=== PATIENT | female | born 1995 | race Caucasian/White ===

== ENCOUNTER → 2020-10-05 13:25 | Outpatient (BNVA) | payer BC, SELFPAY | PROVIDERS: Visit Provider Obstetrics & Gynecology | DX: Z32.01 Encounter for pregnancy test, result positive (principal) | CPT/HCPCS: 81025 ==

== ENCOUNTER 2020-10-20 15:34 | Outpatient (CLI) | payer BC, SELFPAY ==
--- NOTE | 2020-10-20 | USR_ITS ---
PROCEDURE INFORMATION: Exam: US , Transvaginal Exam date and time: 10/20/2020 3:55 PM Age: 25 years old Clinical indication: Lmp or gestational age (in weeks): Patient states she should be 8w 1d; Antepartum complications; Bleeding; ; Additional info: Threatened TECHNIQUE: Imaging protocol: Real-time transvaginal obstetrical ultrasound of the maternal pelvis and a first trimester with image documentation. Transvaginal imaging was used for better evaluation of the fetus, adnexa, and/or cervix. COMPARISON: No relevant prior studies available. FINDINGS: Gestation: A single live intrauterine gestation is identified. heart rate: Cardiac activity is documented. However, heart rate is only 61 bpm. Placenta: There is a 1.4 x 0.9 x 0.9 cm focus of subchorionic hemorrhage demonstrated. BIOMETRY: Gestational age (AUA): [place]-rump length correlates to a gestational age of 6 weeks 1 day. MATERNAL: Uterus: Endometrial configuration suggests arcuate uterus. Bicornuate uterus not excluded, but considered less likely based on the submitted axial images. Right adnexa: Right ovary measures 1.9 x 2.4 x 2.5 cm. Multiple follicular cysts are demonstrated. Slightly complex 1.5 cm right ovarian cyst, consistent with a hemorrhagic cyst. Appropriate blood flow documented by Doppler. Left adnexa: Left ovary measures 3.3 x 2.1 x 2.7 cm. Multiple follicular cysts are noted. 1.9 cm exophytic left ovarian cyst versus paraovarian cyst. Appropriate blood flow documented by Doppler. US/US OB transvaginal [id number] IMPRESSION: 1. A single live intrauterine gestation is identified. [place]-rump length correlates to a gestational age of 6 weeks 1 day. 2. Cardiac activity is documented. However, heart rate is only 61 bpm. bradycardia is associated with increased risk for failure. 3. There is a 1.4 x 0.9 x 0.9 cm focus of subchorionic hemorrhage demonstrated. 4. Endometrial configuration suggests arcuate uterus. Bicornuate uterus not excluded, but considered less likely based on the submitted axial images. 5. No significant ovarian abnormality demonstrated. Incidental note made of a 1.5 cm hemorrhagic right ovarian cyst.
== END 2020-10-20 15:35 | disposition home or self-care (01) ==
LOC: RAD 15:40
PROVIDERS: PCP Physician Assistant Medical; Visit Provider Nurse Practitioner Women's Health
DX: O20.0 Threatened abortion (principal); O34.81 Maternal care for other abnormalities of pelvic organs, first trimester; N83.201 Unspecified ovarian cyst, right side; Z3A.01 Less than 8 weeks gestation of pregnancy
CPT/HCPCS: 76817; 84315; 84439; 84443; 84702; 85027; 86850; 86900; 87491; 87591; 87661

== ENCOUNTER → 2020-10-31 09:58 | Outpatient (BNVA) | payer BC, SELFPAY | PROVIDERS: PCP Physician Assistant Medical; Visit Provider Obstetrics & Gynecology | DX: O36.80X0 Pregnancy with inconclusive fetal viability, not applicable or unspecified (principal); O20.0 Threatened abortion; Z3A.00 Weeks of gestation of pregnancy not specified | CPT/HCPCS: 84315; 84702 ==

== ENCOUNTER → 2020-11-07 11:04 | Outpatient (BNVA) | payer BC, SELFPAY | PROVIDERS: PCP Physician Assistant Medical; Visit Provider Obstetrics & Gynecology | DX: O36.80X0 Pregnancy with inconclusive fetal viability, not applicable or unspecified (principal); Z3A.00 Weeks of gestation of pregnancy not specified | CPT/HCPCS: 84315; 84702 ==

== ENCOUNTER → 2020-11-29 13:19 | Outpatient (BNVA) | payer BC, SELFPAY | PROVIDERS: PCP Physician Assistant Medical; Visit Provider Obstetrics & Gynecology | DX: O36.80X0 Pregnancy with inconclusive fetal viability, not applicable or unspecified (principal) | CPT/HCPCS: 84702 ==

== ENCOUNTER → 2021-01-08 00:01 | Outpatient (BNVA) | payer BC, SELFPAY | PROVIDERS: PCP Physician Assistant Medical; Visit Provider Obstetrics & Gynecology | DX: Z12.4 Encounter for screening for malignant neoplasm of cervix (principal); Q51.3 Bicornate uterus | CPT/HCPCS: 88175 ==

== ENCOUNTER 2021-01-22 14:54 | Outpatient (CLI) | payer BC, SELFPAY ==
--- NOTE | 2021-01-22 15:15 | MR_ITS ---
WS: [id number] MRI pelvis, noncontrast. HISTORY: Bicornuate uterus. COMPARISON: 11/21/2020 and 10/20/2020 and ultrasound evaluations. Multiplanar, multisequence imaging is performed through the pelvis to evaluate the uterus. The uterine contour is flat to slightly convex and there is a midline septum. There are 2 endometrial cavities. These endometrial cavities are asymmetric. The endometrial cavity on the LEFT is dominant measuring up to 17 mm with some internal debris. The RIGHT endometrial cavity measures 10 mm. There i s a septum the cavities but this is a short septum. The overall configuration of the fundu s of the uterus is suggestive of a septate uterus and not a bicornuate uterus. The septum between the endometrial cavity terminates proximal to the cervix. There is a small amount of free fluid in the pelvis. Both ovaries are identified and normal size with numerous small cysts. MR/MR pelvis wo con* [id number] IMPRESSION: 1. Findings are most consistent with a partial septate uterus. Differential wo uld include arcuate uterus. 2. Dominant LEFT endometrial cavity contains debris. This may be retained prod ucts of conception. 3. Small amount of free fluid in the cul-de-sac. 4. Numerous bilateral ovarian follicles. Correlate for possible polycystic ova luisito disease.
== END 2021-01-22 14:55 | disposition home or self-care (01) ==
LOC: RADWPI 14:56
PROVIDERS: PCP Physician Assistant Medical; Visit Provider Obstetrics & Gynecology
DX: Q51.3 Bicornate uterus (principal)
CPT/HCPCS: 72195

== ENCOUNTER 2021-04-03 07:54 | Outpatient (CLI) | payer BC, SELFPAY ==
--- NOTE | 2021-04-03 08:00 | FL_ITS ---
WS: [id number] HYSTEROSALPINGOGRAM The cervical opening was cannulated by the river rat. Then under fluoroscopic guidance, water-solu ble contrast was injected in a retrograde fashion. FLUOROSCOPY TIME: CLINICAL INFORMATION: Q51.3 - Bicornate uterus COMPARISON: None. FINDINGS: Septated uterus with normal filling. No filling defects. The bilateral fallopian tubes are normal and patent with normal rapid spillage of contrast into the peritoneum. FLUOROSCOPY TIME: minutes. FL/FL hysterosalpingography [id number] IMPRESSION: Septated uterus with normal filling. Fallopian tubes are patent with normal spi llage.
--- NOTE | 2021-04-03 08:45 | PM.ACPR ---
Procedure/Consent Procedure Narrative: Radiologic procedure Date of procedure: 04/03/2021 Date of dictation: 04/03/2021 Procedural diagnosis: Assess uterine cavity-possible septum Procedure done: Placement of hysterosalpingogram catheter Physician: Dr. Yenny Finley Anesthesia: None Indication: To assess depth and width of uterine septum Complications: None, patient tolerated the procedure well PROCEDURE: The procedure was explained to the patient and verbal consent provided. Sterile speculum was placed in the vagina and the cervix was prepped with Betadine. The cervix was grasped with a single-tooth tenaculum. Using Omnipaque dye, the HSG catheter was primed. The catheter was inserted into the cervix and the speculum was removed. Fluoroscopy was performed by the radiologist. Omnipaque dye was injected into the endometrial cavity with filling of cavity with a large central filling defect consistent with septum--see final report of radiologist. Bilateral tubes appeared normal caliber with immediate spill of dye bilaterally. The tenaculum and catheter were removed. Patient tolerated the procedure well. Please see separate radiologist report for final interpretation. Followup appointment: She is to followup at her next scheduled appointment
[2021-04-03] MEDS: iohexol 300 mg/mL 50 mL Btl VAGINAL (08:48)
== END 2021-04-03 07:55 | disposition home or self-care (01) ==
LOC: RAD 07:58
PROVIDERS: PCP Physician Assistant Medical; Visit Provider Obstetrics & Gynecology
DX: Q51.3 Bicornate uterus (principal); Q51.28 Other and unspecified doubling of uterus
CPT/HCPCS: 74740

== ENCOUNTER → 2021-10-31 09:39 | Outpatient (BNVA) | payer BC, SELFPAY | PROVIDERS: PCP Physician Assistant Medical; Visit Provider Nurse Practitioner Women's Health | DX: N92.6 Irregular menstruation, unspecified (principal) | CPT/HCPCS: 81025 ==

== ENCOUNTER 2021-11-05 11:26 | Emergency (ER) | payer BC, SELFPAY ==
--- NOTE | 2021-11-05 11:35 | US_ITS ---
WS: [id number] ULTRASOUND EARLY TECHNIQUE: Transabdominal sonography of the pelvis was performed. Followed by transvaginal sonography to better evaluate the uterus and ovaries. CLINICAL INFORMATION: 8 wks preg; bleeding LMP: 09/21/2021 Beta hCG: Unknown. COMPARISON: October 31, 2021 FINDINGS: UTERUS AND GESTATIONAL SAC Intrauterine gestations: Cervix measures 3.0 cm Intrauterine gestation with gestational sac and pole. Visualized cardiac activity. Estimated gestational age: 6w1d Yolk sac: 0.3 cm. [place] rump length (CRL): 0.4 cm. heart motion: 94 BPM. Subchorionic hemorrhage: None. OVARIES Similar left paraovarian cyst Right ovary: Normal. Left ovary: Normal. FREE FLUID Present US/US OB transvaginal [id number] IMPRESSION: 1. Single live intrauterine . Cervix measures 3.0 cm 2. Estimated gestational age; 6w1d 3. Estimated delivery June 30, 2022 4. Stable simple left paraovarian cyst. 5. Small amount of free fluid in the cul-de-sac.
[2021-11-05 13:01] VITALS: BP 132/80; PULSE 90; RESP 18; TEMP 36.7; O2SAT 99; BMI 40.3
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
[2021-11-05 14:16] LABS: Basophils # 0.1 10^3/uL (0.0-0.1); Basophils % 0.7 %; Eosinophils # 0.1 10^3/uL (0.0-0.8); Eosinophils % 1.7 %; Hematocrit 41.4 % (37.0-47.0); Hemoglobin 13.6 g/dL (11.5-15.3); Lymphocytes # 2.2 10^3/uL (0.8-4.8); Lymphocytes % 30.5 %; Mean Corpuscular HGB Conc 32.9 g/dL (30.0-36.0); Mean Corpuscular Volume 85.4 fl (81-99); Mean Platelet Volume 9.6 fL (7.4-10.4); Monocytes # 0.4 10^3/uL (0.2-0.9); Neutrophils # 4.29 10^3/uL (1.8-7.7); Neutrophils % 60.8 %; Nucleated Red Blood Cells % 0 %; Platelet Count 328 10^3/cmm (130-400); Red Blood Count 4.85 10^6/uL (4.1-5.3); Red Cell Distribution Width 13.9 % (12.1-15.1); White Blood Count 7.1 10^3/uL (4.0-10.0)
[2021-11-05 14:41] LABS: Alanine Aminotransferase 28 U/L (0-33); Albumin Level 4.7 g/dL (3.5-5.2); Alkaline Phosphatase 48 IU/L (35-105); Anion Gap 18.9 (5-19); Aspartate Amino Transferase 19 U/L (0-32); Blood Urea Nitrogen 9 mg/dL (6-20); Carbon Dioxide 22 mmol/L (22-29); Chloride 102 mmol/L (98-107); Globulin 2.8 g/dL (1.3-4.6); Glomerular Filtration Rate 149.1 mL/min (90-130); Glucose 87 mg/dL (65-115); Osmolality Calculated 286 mOsm/kg (285-295); Potassium 3.9 mmol/L (3.5-5.1); Sodium 139 mmol/L (136-145); Total Bilirubin 0.7 mg/dL (0.15-1.2); Total Protein 7.5 g/dL (6.6-8.7)
[2021-11-05 15:31] VITALS: BP 132/80; PULSE 90; RESP 18; TEMP 36.7; O2SAT 99
--- NOTE | 2021-11-06 16:17 | PC.SOCIAL ---
Verified with patient that she did get the outpatient request form for the hcg serum quant on 11/07/21. She verified she does have the outpatient request order and plans on taking it to [facility] and having test done there.
== END 2021-11-05 15:32 | disposition home or self-care (01) ==
PROVIDERS: Emergency Provider Physician Assistant; PCP Physician Assistant Medical
DX: O20.0 Threatened abortion (principal); Z3A.01 Less than 8 weeks gestation of pregnancy
CPT/HCPCS: 36415; 76817; 80053; 84702; 85025; 86900; 99283

== ENCOUNTER → 2021-11-07 13:10 | Outpatient (BNVA) | payer BC, SELFPAY | PROVIDERS: PCP Physician Assistant Medical; Visit Provider Physician Assistant | DX: Z34.90 Encounter for supervision of normal pregnancy, unspecified, unspecified trimester (principal) | CPT/HCPCS: 84702 ==

== ENCOUNTER → 2021-11-13 12:06 | Outpatient (BNVA) | payer BC, SELFPAY | PROVIDERS: PCP Physician Assistant Medical; Visit Provider Nurse Practitioner Family | DX: O20.0 Threatened abortion (principal) | CPT/HCPCS: 84702 ==

== ENCOUNTER → 2021-12-04 11:23 | Outpatient (BNVA) | payer BC, SELFPAY | PROVIDERS: PCP Physician Assistant Medical; Visit Provider Obstetrics & Gynecology | DX: F32.A Depression, unspecified (principal); O20.0 Threatened abortion | CPT/HCPCS: 84702 ==

== ENCOUNTER 2022-04-16 07:40 | Outpatient (CLI) | payer OTHER, SELFPAY ==
--- NOTE | 2022-04-16 08:00 | FL_ITS ---
WS: [id number] Hysterosalpingogram, 04/16/2022 Clinical Data: Z98.891 - History of uterine scar from previous surgery Comparison: None. Fluoroscopy time: 0min [id number] # of spot films: 4 Findings: Dr. Betts injected contrast material into the uterus. The fallopian tubes were normal and fi lled. There is spill in the pelvis bilaterally. Both fallopian tubes were open without dilatation. Th e uterus had a bicornuate configuration. FL/FL hysterosalpingography [id number] Impression: Bicornuate figuration of the uterus with normal bilateral fallopian tubes and p elvic spill.
--- NOTE | 2022-04-16 08:30 | PM.ACPR ---
Procedure/Consent Procedure Narrative: Radiologic procedure Date of procedure: 04/16/2022 Procedural diagnosis: Assess uterine septum Procedure done: Placement of hysterosalpingogram catheter Physician: Dr. Yenny Finley Anesthesia: None Indication: To assess patency of fallopian tubes as well as to reassess septum after surgery Complications: None, patient tolerated the procedure well PROCEDURE: The procedure was explained to the patient and verbal consent provided. Sterile speculum was placed in the vagina and the cervix was prepped with Betadine. The cervix was grasped with a single-tooth tenaculum. Using Omnipaque dye, the HSG catheter was primed. The catheter was inserted into the cervix and the speculum was removed. Fluoroscopy was performed by the radiologist. Omnipaque dye was injected into the endometrial cavity with normal filling of the cavity. Defect from uterine septum was still seen. Bilateral tubes appeared normal caliber with immediate spill of dye bilaterally. The tenaculum and catheter were removed. Patient tolerated the procedure well. Please see separate radiologist report for final interpretation. Followup appointment: She is to followup at her next scheduled appointment
[2022-04-16] MEDS: iohexol 240 mg/mL 50 mL Btl INTRA-ARTI (08:39)
== END 2022-04-16 07:41 | disposition home or self-care (01) ==
PROVIDERS: PCP Physician Assistant Medical; Visit Provider Obstetrics & Gynecology
DX: Z98.891 History of uterine scar from previous surgery (principal)
CPT/HCPCS: 74740

== ENCOUNTER 2023-03-14 06:58 | Outpatient (CLI) | payer OTHER, SELFPAY ==
--- NOTE | 2023-03-14 07:20 | MR_ITS ---
WS: [id number] MRI PELVIS with and without CONTRAST. COMPARISON: Prior MRI pelvis 01/22/2021. Multiplanar, multisequence imaging is performed with and without contrast. MultiHance 20 mL IV. Normal size and position of the uterus. Improvement in the previously described septate uterus. There was a very minimal partial septation which is no longer identified. There is a normal contour of the uterus. There is a more typical appearance of the endometrium with normal cornua. No thickening or w idening of the endometrium. There is a new area of T2 bright nodularity along the lower uterine segme nt which does not enhance. This may be scar tissue or adenomyosis. This area measures 10 x 12 mm and was not present on the prior study. Subendometrial cyst within the differential. No adnexal masses or adenopathy. Physiologic amount of free fluid. No endometrial implants are identi fied. Ovaries are normal size with a few small follicles. Visualized bladder is normal. MR/MR pelvis wo/w con [id number] IMPRESSION: 1. Previously described partial septate is no longer present compared to the p rior study from 2020. As per history surgical removal of the partial septate. N o endometrial mass. 2. New, nonenhancing T2 bright nodularity along the lower uterine segment caridad ures 10 x 12 mm. Differential includes small subendometrial cysts. Not a typica l appearance of scar tissue or endometriosis. 3. Normal appearance of the endometrium. 4. Normal ovaries.
== END 2023-03-14 06:59 | disposition home or self-care (01) ==
PROVIDERS: PCP Nurse Practitioner Family; Visit Provider Obstetrics & Gynecology Reproductive Endocrinology
DX: Q51.9 Congenital malformation of uterus and cervix, unspecified (principal)
CPT/HCPCS: 72197; A9577

== ENCOUNTER 2023-07-03 07:12 | Outpatient (CLI) | payer OTHER, SELFPAY ==
--- NOTE | 2023-07-03 07:23 | US_ITS ---
WS: [id number] US pelv w/transvag [id number] HISTORY: ENCOUNTER FOR OTHER PROCREATIVE MANAGEMENT COMPARISON: None available. Uterus: 7.9 cm x 5.3 cm x 4.2 cm. Normal size retroverted uterus on transvaginal imaging. No fibroid or mass. Endometrium: 1.0 cm. Tiny amount of fluid along the endometrial canal Right ovary: 2.7 cm x 1.7 cm x 3.0 cm. Normal size ovary. There are multiple small follicles. The lar gest follicle measures 6 mm. Approximately 14 follicles are identified. Left ovary: 4.4 cm x 4.6 cm x 3.4 cm. Mildly enlarged ovary due to a large cyst with daughter cyst cy st measures 3.0 x 3.9 x 3.1 cm. There are additional small follicles within the periphery of the ovar y which are being displaced by the larger cyst. Number of follicles is approximately 12. Largest foll icle measures 7 mm. No free fluid in the cul-de-sac. IMPRESSION: 1. Large left ovarian cyst/daughter cyst. Cyst measures 3.0 x 3.9 x 3.1 cm. 2. Right ovarian follicle count = 14. 3. Left ovarian follicle count = 12. 4. Normal endometrium, 1.0 cm.
== END 2023-07-03 07:13 | disposition home or self-care (01) ==
PROVIDERS: PCP Nurse Practitioner Family; Visit Provider Obstetrics & Gynecology Reproductive Endocrinology
DX: Z31.89 Encounter for other procreative management (principal); N83.202 Unspecified ovarian cyst, left side
CPT/HCPCS: 76830; 76856

== ENCOUNTER 2023-07-14 06:46 | Outpatient (CLI) | payer OTHER, SELFPAY ==
--- NOTE | 2023-07-14 | US_ITS ---
WS: [id number] US transvaginal [id number] HISTORY: FERTILITY STUDY COMPARISON: 07/03/2023 Uterus: 7.4 cm x 6.1 cm x 3.8 cm. Normal size anteverted uterus. No fibroid or mass. Endometrium: 1.2 cm. Mildly thickened endometrium. Mild progression since the prior examination from 07/03/2023. Right ovary: 2.9 cm x 2.4 cm x 3.0 cm. Normal size ovary with several subcentimeter follicles. Larges t follicle measures 9 mm. The number of follicles is estimated at 10. Left ovary: 3.9 cm x 3.9 cm x 2.6 cm. Mildly enlarged ovary. Dominant daughter cyst is noted. Cyst me asures 3.2 x 2.8 x 3.3 cm. There are a few additional small peripheral follicles. An additional folli aguilar with a maximum diameter of 1.5 cm. No free fluid in the cul-de-sac. IMPRESSION: 1. Normal endometrium at 1.2 cm. 2. LEFT ovarian cyst measures 3.2 x 2.8 x 3.3 cm. 3. Approximately 10 subcentimeter follicles RIGHT ovary.
== END 2023-07-14 06:47 | disposition home or self-care (01) ==
PROVIDERS: PCP Nurse Practitioner Family; Visit Provider Obstetrics & Gynecology Reproductive Endocrinology
DX: Z31.9 Encounter for procreative management, unspecified (principal); N83.202 Unspecified ovarian cyst, left side
CPT/HCPCS: 76830

== ENCOUNTER 2023-07-17 06:07 | Outpatient (CLI) | payer OTHER, SELFPAY ==
--- NOTE | 2023-07-17 | US_ITS ---
WS: [id number] US transvaginal [id number] HISTORY: Endometrial Thickening and Follicular measurement COMPARISON: 07/14/2023 Uterus: 6.6 cm x 4.8 cm x 3.4 cm. Uterus is retroverted on today's exam. No fibroid. Endometrium: 1.1 cm. Mildly thickened endometrium. Similar to the prior study. Right ovary: 2.7 cm x 1.8 cm x 2.2 cm. Normal size ovary. There are multiple small follicles with the largest diameter at 0.7 cm. Left ovary: 4.8 cm x 4.2 cm x 2.6 cm. Ovary is enlarged. Again noted is a daughter cyst within the ov lee measuring 4.1 x 3.7 x 2.3 cm. There is an additional enlarging follicle of 1.7 x 1.9 x 1.6 cm. Se veral of the follicles within the LEFT ovary have increased in size since the prior study. Number of follicles estimated at approximately 10. No free fluid in the cul-de-sac. IMPRESSION: 1. Mildly thickened endometrium at 1.1 cm. Similar to the prior exam of 07/14/2023. 2. Enlarging cyst and follicles within the LEFT ovary. The largest cyst 4.1 x 3.7 x 2.3 cm has increa sed in size since 02/11/2023. There are additional follicles which have increased in size. 3. Subcentimeter follicles in the RIGHT ovary unchanged.
== END 2023-07-17 06:08 | disposition home or self-care (01) ==
PROVIDERS: PCP Nurse Practitioner Family; Visit Provider Obstetrics & Gynecology Reproductive Endocrinology
DX: Z31.9 Encounter for procreative management, unspecified (principal); R93.89 Abnormal findings on diagnostic imaging of other specified body structures
CPT/HCPCS: 76830

== ENCOUNTER 2023-08-01 12:56 | Outpatient (CLI) | payer OTHER, SELFPAY ==
--- NOTE | 2023-08-01 | US_ITS ---
WS: [id number] US transvaginal [id number] HISTORY: ENDO THICKNESS, NUMBER OF FOLLICLES <1CM, MEASURE >1CM COMPARISON: 07/17/2023 Uterus: 7.2 cm x 4.9 cm x 3.6 cm. Normal size retroverted uterus. No fibroid or mass identified. Endometrium: 0.85 cm. Normal. No increased vascularity. Secretory phase endometrium. Loss of the norm al trilaminar appearance. Right ovary: 3.1 cm x 1.8 cm x 3.1 cm. Largest follicle 1.5 x 1.1 x 1.2 cm. The remaining follicles a re less than a centimeter. The remaining follicles are peripherally distributed within the ovary Left ovary: 7.2 cm x 5.3 cm x 3.2 cm. Large cyst measures 4.7 x 3.9 x 2.7 cm. Additional follicles wi thin the ovary. There are 2 additional follicles each measuring greater than 1 cm. Largest measures 1 .7 x 1.7 x 1.8 cm. Additional follicle measuring greater than a centimeter measures 0.9 x 1.2 x 0.5 c m. Several additional follicles measuring less than a centimeter in the periphery. Small amount of free fluid. IMPRESSION: 1. LEFT ovarian cyst 4.7 x 3.9 x 2.7 cm. 2. There are 2 additional LEFT ovarian follicles each measuring greater than a centimeter. 3. Single RIGHT ovarian follicle greater than 1 cm, 1.5 x 1.1 x 1.2 cm. 4. Secretory endometrium.
== END 2023-08-01 12:57 | disposition home or self-care (01) ==
LOC: RAD 12:58
PROVIDERS: PCP Nurse Practitioner Family; Visit Provider Obstetrics & Gynecology Reproductive Endocrinology
DX: R93.89 Abnormal findings on diagnostic imaging of other specified body structures (principal); N83.202 Unspecified ovarian cyst, left side
CPT/HCPCS: 76830

== ENCOUNTER 2023-09-03 06:51 | Outpatient (CLI) | payer OTHER, SELFPAY ==
--- NOTE | 2023-09-03 | US_ITS ---
WS: [email or web address] US transvaginal [id number] HISTORY: FOLLICLE COUNT AND THICKNESS COMPARISON: 08/01/2023 Uterus: 6.6 cm x 5.3 cm x 3.6 cm. Normal size retroverted uterus. No fibroid or mass identified. Endometrium: 1.0 cm. Mildly thickened heterogeneous endometrium. Loss of the normal trilaminar endome trium. Right ovary: 2.9 cm x 1.8 cm x 3.1 cm. Normal size ovary. There are several small peripheral follicle s. The number of follicles is estimated at 6. The largest follicle measures 9 x 6.8 mm. Left ovary: 3.0 cm x 2.6 cm x 1.6 cm. Normal size ovary. The largest cyst within the LEFT adnexa is a djacent but not definitely within the ovary. Favor this is probably an exophytic cyst. This was not p resent on the prior study. This adnexal cyst measures 18 x 18 x 13 mm. The follicles within the LEFT ovary otherwise are smaller. Approximately 6 follicles are estimated. No free fluid in the cul-de-sac. IMPRESSION: 1. Heterogeneous endometrium at 1.0 cm. 2. RIGHT ovarian follicles, number estimated at 6. Largest follicle 9 x 6 x 8 mm. 3. Estimated 6 follicles within the LEFT ovary. The largest cyst in the LEFT adnexa is adjacent to th e ovary. This is probably an exophytic ovarian cyst. This is the largest in the LEFT adnexa measuring 18 x 18 x 13 mm.
== END 2023-09-03 06:52 | disposition home or self-care (01) ==
LOC: RAD 06:52
PROVIDERS: PCP Nurse Practitioner Family; Visit Provider Obstetrics & Gynecology Reproductive Endocrinology
DX: Z31.9 Encounter for procreative management, unspecified (principal)
CPT/HCPCS: 76830

== ENCOUNTER 2023-09-15 06:04 | Outpatient (CLI) | payer OTHER, SELFPAY ==
--- NOTE | 2023-09-15 06:26 | US_ITS ---
WS: [email or web address] US pelvis lmt w transvag HISTORY: Follicle size. COMPARISON: 09/03/2023 Normal sized midline uterus. Uterus is anteverted today. No fibroid or mass. Endometrium: 1.3 cm. Normal, homogeneous and symmetric appearance of the endometrium. Consistent with a secretory phase of the menstrual cycle. Right ovary: 4.4 cm x 4.3 cm x 3.0 cm. Multiple small follicles are identified. The largest follicle measures 0.8 x 0.8 cm. Number of follicles estimated at 9. Left ovary: 3.9 cm x 4.6 cm x 2.2 cm. Multiple follicles are identified in the LEFT ovary. Largest fo llicle measures 1.4 x 1.8 cm. There are additional smaller follicles. The number of follicles estimat ed at 8. Small amount of free fluid in the cul-de-sac. IMPRESSION: 1. LEFT ovary: Largest follicle 1.4 x 1.8 cm. 2. RIGHT ovary: Follicles are less than 1 cm. 3. Number of follicles LEFT ovary estimated at 8. 4. Number of follicles RIGHT ovary estimated at 9. 5. Secretory endometrium.
== END 2023-09-15 06:05 | disposition home or self-care (01) ==
LOC: RAD 06:05
PROVIDERS: PCP Nurse Practitioner Family; Visit Provider Obstetrics & Gynecology Reproductive Endocrinology
DX: Z31.9 Encounter for procreative management, unspecified (principal)
CPT/HCPCS: 76830; 76857

== ENCOUNTER 2023-10-03 07:37 | Outpatient (CLI) | payer OTHER, SELFPAY ==
--- NOTE | 2023-10-03 07:44 | USR_ITS ---
PROCEDURE INFORMATION: Exam: US Pelvis, Transvaginal Exam date and time: 10/03/2023 8:26 AM Age: 28 years old Clinical indication: Screening exam; Procreative management. No history of trauma or recent surgery is provided. TECHNIQUE: Imaging protocol: Real-time transvaginal pelvic ultrasound with image documentation. Transvaginal imaging was used for better evaluation of the endometrium, adnexa, and/or cervix. 269image(s) are provided. COMPARISON: 1. US pelvis lmt w transvag 09/15/2023 6:36 AM 2. US transvaginal [id number] 09/03/2023 7:13 AM 3. US transvaginal [id number] 08/01/2023 1:57 PM FINDINGS: Uterus: The uterus measures 6.8 x 2.9 x 4.8 cm. The endometrial measures 1 cm. No uterine endometrial fluid collections are currently appreciated. The uterine echotexture is relatively homogeneous. Cervix: There are some cervical nabothian cystic changes present. No cervix level fluid collections are currently appreciated. Right ovary/adnexa: The right ovary measures 2.9 x 2.8 x 2 cm. Ovarian color doppler flow is demonstrated. There are multiple right ovarian anechoic follicular cystic type related changes with 1 of the larger measuring around 1.3 x 1 cm. There appear to be estimated around 6 larger dominant appearing cysts overall present with minimal smaller adjacent. Left ovary/adnexa: The left ovary measures 3.5 x 1.6 x 2.5 cm. Ovarian color doppler flow is demonstrated. The left ovary demonstrates multiple anechoic follicular cystic related changes present with 1 of the larger measuring 1.5 x 1.7 x 1.7 cm. There appear to be estimated at least 5 left ovarian dominant cystic related changes with some minimal smaller adjacent. Intraperitoneal space: No significant free fluid is appreciated. There is some trace pelvic, cul-de-sac fluid likely physiologic. No other significant interval changes are appreciated. US/US transvaginal [id number] IMPRESSION: 1. There are multiple ovarian follicular anechoic cystic changes demonstrated bilaterally. 2. Ovarian color Doppler flow is demonstrated bilaterally. 3. No interval central uterine canal fluid collections are appreciated.
== END 2023-10-03 07:38 | disposition home or self-care (01) ==
LOC: RAD 07:38
PROVIDERS: PCP Nurse Practitioner Family; Visit Provider Obstetrics & Gynecology Reproductive Endocrinology
DX: Z31.9 Encounter for procreative management, unspecified (principal)
CPT/HCPCS: 76830

== ENCOUNTER 2023-10-13 15:13 | Outpatient (CLI) | payer OTHER, SELFPAY ==
--- NOTE | 2023-10-13 16:00 | US_ITS ---
WS: [email or web address] US transvaginal [id number] HISTORY: Mid cycle scan COMPARISON: 10/03/2023 Uterus: 7.0 cm x 4.8 cm x 3.2 cm. Normal size retroverted uterus. No fibroid or mass identified. Endometrium: 0.8 cm. Mild secretory appearance of the endometrium. Right ovary: 2.8 cm x 2.4 cm x 1.8 cm. Normal size ovary with multiple small follicles. The largest f ollicle measures 0.7 x 0.8 x 1.2 cm. Estimated number of follicles is 5. Left ovary: 3.6 cm x 2.9 cm x 2.3 cm. Large follicle measures 2.4 x 1.3 x 2.8 cm. The number of folli cles estimated at 6. No free fluid in the cul-de-sac. IMPRESSION: 1. Secretory appearance of the endometrium. 2. Largest follicle LEFT ovary 2.4 x 1.3 x 2.8 cm. 3. Number of follicles LEFT ovary estimated at 6. 4. Number of follicles RIGHT ovary estimated at 5.
== END 2023-10-13 15:14 | disposition home or self-care (01) ==
PROVIDERS: PCP Nurse Practitioner Family; Visit Provider Obstetrics & Gynecology Reproductive Endocrinology
DX: Z31.9 Encounter for procreative management, unspecified (principal)
CPT/HCPCS: 76830

== ENCOUNTER 2023-12-12 10:21 | Outpatient (CLI) | payer OTHER, SELFPAY ==
--- NOTE | 2023-12-12 10:28 | US_ITS ---
WS: [email or web address] US transvaginal [id number] HISTORY: ENCOUNTER FOR OTHER PROCREATIVE MANAGEMENT COMPARISON: 10/13/2023 Uterus: 6.7 cm x 5.1 cm x 3.1 cm. Normal size retroverted uterus. No fibroid or mass identified. Endometrium: 1.4 cm. Mild thickening of the endometrium with loss of the normal junctional zone. Right ovary: 3.2 cm x 1.8 cm x 2.9 cm. Normal size ovary. The largest follicle measures 1.2 x 1.2 x 0 .8 cm. There are greater than 10 follicles within the ovary. Left ovary: 3.0 cm x 3.3 cm x 1.9 cm. Normal size ovary. Dominant follicle measures 1.3 x 1.4 x 1.7 c m. Greater than 10 follicles are identified within the ovary. No free fluid in the cul-de-sac. IMPRESSION: 1. Mild thickening of the endometrium to 1.4 cm. 2. Greater than 10 follicles are identified within each ovary. The exact number is difficult to dete rmine due to their very small size. 3. Largest follicle RIGHT ovary -1.2 x 1.2 x 0.8 cm. 4. Largest follicle LEFT ovary -1.3 x 1.4 x 1.7 cm.
== END 2023-12-12 10:22 | disposition home or self-care (01) ==
LOC: RAD 10:21
PROVIDERS: PCP Nurse Practitioner Family
DX: Z31.89 Encounter for other procreative management (principal); R93.89 Abnormal findings on diagnostic imaging of other specified body structures
CPT/HCPCS: 76830

== ENCOUNTER 2023-12-22 10:04 | Outpatient (CLI) | payer OTHER, SELFPAY ==
--- NOTE | 2023-12-22 10:12 | US_ITS ---
WS: [id number] US transvaginal [id number] HISTORY: ENCOUNTER FOR OTHER PROCREATIVE MANAGEMENT COMPARISON: 12/12/2023 Uterus: 6.1 cm x 4.5 cm x 3.2 cm. Normal size retroverted uterus. No fibroid or mass identified. Endometrium: 1.5 cm. Thickened heterogeneous endometrium. Endometrium has increased in thickness sinc e 12/12/2023. More focal thickening of the endometrium at the fundal portion. Right ovary: 3.9 cm x 3.3 cm x 3.7 cm. Ovary is slightly greater in size than on the prior study. Cum ulus oophorus within the RIGHT ovary measures 2.8 x 2.3 x 2.2 cm. There are numerous additional perip heral follicles within the RIGHT ovary. Number of follicles is greater than 10. Left ovary: 3.3 cm x 2.7 cm x 1.8 cm. Numerous small follicles have increased in size and number sinc e the prior examination. The largest follicle is 1.4 x 1.5 x 1.2 cm. There are at least 16 follicles identified. No free fluid in the cul-de-sac. IMPRESSION: 1. Secretory endometrium; 1.5 cm. 2. RIGHT ovary: Large dominant follicle measures 2.8 x 2.3 x 2.2 cm. There are at least 10 follicles identified in the RIGHT ovary. 3. LEFT ovary: Largest follicle measures 1.4 x 1.5 x 1.2 cm. At least 16 follicles identified.
== END 2023-12-22 10:05 | disposition home or self-care (01) ==
LOC: RAD 10:04
PROVIDERS: PCP Nurse Practitioner Family; Visit Provider Obstetrics & Gynecology Reproductive Endocrinology
DX: Z31.89 Encounter for other procreative management (principal)
CPT/HCPCS: 76830

== ENCOUNTER 2024-01-05 14:47 | Outpatient (CLI) | payer OTHER, SELFPAY ==
--- NOTE | 2024-01-05 14:51 | US_ITS ---
WS: [email or web address] ULTRASOUND BREAST LEFT TECHNIQUE: Ultrasound left breast focused area of concern. CLINICAL INFORMATION: ABCESS OF BR AND NIPPLE COMPARISON: None. FINDINGS: Ultrasound LEFT breast area of concern 7 o'clock position 5 cm from the nipple. Tiny subcutaneous les ion adjacent to the skin measuring 8 x 1 mm. This likely resents a tiny sebaceous cyst. No other susp icious findings. This has a benign appearance.. IMPRESSION: BI-RADS 2 benign Recommend annual screen mammography age 40.
== END 2024-01-05 14:48 | disposition home or self-care (01) ==
LOC: RAD 14:47
PROVIDERS: PCP Nurse Practitioner Family; Visit Provider Nurse Practitioner Family
DX: N61.1 Abscess of the breast and nipple (principal)
CPT/HCPCS: 76642

== ENCOUNTER 2024-01-16 07:46 | Outpatient (CLI) | payer OTHER, SELFPAY ==
--- NOTE | 2024-01-16 07:52 | US_ITS ---
WS: [email or web address] US transvaginal [id number] HISTORY: ENCOUNTER FOR OTHER PROCREATIVE MANAGEMENT COMPARISON: 12/22/2023 Uterus: 6.4 cm x 5.1 cm x 3.3 cm. Normal size retroverted uterus. No fibroid or mass identified. Endometrium: 0.5 cm. Normal. Right ovary: 3.6 cm x 2.4 cm x 3.6 cm. Normal size ovary. Numerous follicles identified. The largest measures 1.4 x 1.3 x 1.8 cm. The remaining follicles are less than a centimeter. Number of follicles estimated at approximately 10. Left ovary: 2.9 cm x 2.9 cm x 1.7 cm. Normal size ovary. Largest follicle measures 1.5 x 1.7 x 1.1 cm . The remaining follicles are less than a centimeter. Number of follicles estimated around 12. No free fluid in the cul-de-sac. IMPRESSION: 1. RIGHT ovary; dominant follicle 1.4 x 1.3 x 1.8 cm. 2. LEFT ovary; dominant follicle 1.5 x 1.7 x 1.1 cm. 3. RIGHT ovarian follicles estimated at 10. 4. LEFT ovarian follicles estimated at 12.
== END 2024-01-16 07:47 | disposition home or self-care (01) ==
LOC: RAD 07:47
PROVIDERS: PCP Nurse Practitioner Family; Visit Provider Obstetrics & Gynecology Reproductive Endocrinology
DX: Z31.89 Encounter for other procreative management (principal)
CPT/HCPCS: 76830

== ENCOUNTER 2024-01-26 07:48 | Outpatient (CLI) | payer OTHER, SELFPAY ==
--- NOTE | 2024-01-26 07:59 | US_ITS ---
WS: [email or web address] US pelvic limited [id number] HISTORY: MIDCYCLE SCAN/PROCREATIVE MANAGEMENT COMPARISON: 01/16/2024 Uterus: 6.7 cm x 5.3 cm x 3.5 cm. Normal size retroverted uterus. No fibroid or mass identified. Endometrium: 1.5 cm. Progressive thickening of the endometrium since the prior study. Endometrium is thickened with increased echogenicity and central lucency. Consistent with secretory phase of the men strual cycle. Right ovary: 4.4 cm x 4.2 cm x 3.1 cm. Mildly enlarged ovary. Multiple follicles are evident. Collaps ing corpus luteum measures 1.2 x 1.8 x 1.5 cm. There is additional dominant follicle which is intact measuring 1.6 x 2.0 x 1.9 cm. Number of follicles estimated at 8. Left ovary: 2.5 cm x 2.9 cm x 1.5 cm. Multiple small follicles are identified. The largest measures 1 .3 x 0.7 x 1.5 cm. Number of follicles estimated at 6. No free fluid in the cul-de-sac. IMPRESSION: 1. Secretory endometrium; 1.5 cm. 2. RIGHT ovarian regressing corpus luteal cyst 1.2 x 1.8 x 1.5 cm. 3. Dominant RIGHT follicle which is not regressing/collapsing measures 1.6 x 2.0 x 1.9 cm. 4. Small follicles LEFT ovary with the largest measuring 1.3 x 0.7 x 1.5 cm. 5. RIGHT ovary estimated number of follicles: 8. 6. LEFT ovary estimated number of follicles: 6.
== END 2024-01-26 07:49 | disposition home or self-care (01) ==
LOC: RAD 07:49
PROVIDERS: PCP Nurse Practitioner Family; Visit Provider Obstetrics & Gynecology Reproductive Endocrinology
DX: Z31.89 Encounter for other procreative management (principal); N83.11 Corpus luteum cyst of right ovary
CPT/HCPCS: 76857

== ENCOUNTER 2025-02-17 15:10 | Inpatient (IN) | payer OTHER, SELFPAY ==
[2025-02-17] VITALS (33 sets, daily range): BP systolic 104–163; BP diastolic 40–95; PULSE 61–100; RESP 16–17; TEMP 36.6–36.8; O2SAT 98–100; BMI 51.5
[2025-02-17 15:11] LABS: Nitrazine Paper, PH Positive
--- NOTE | 2025-02-17 16:24 | PC.NURSE ---
Patient wearing inappropriate blood pressure cuff at this time; cuff too small. Changed to radial cuff.
[2025-02-17 16:45] LABS: Basophils % 0.2 %; Eosinophils # 0.1 10^3/uL (0.0-0.8); Eosinophils % 0.5 %; Hematocrit 34.3 % (36-47); Lymphocytes # 1.7 10^3/uL (0.8-4.8); Lymphocytes % 13.3 %; Mean Corpuscular HGB Conc 31.8 g/dL (30-55); Mean Corpuscular Hemoglobin 26.4 pg (27-33); Mean Corpuscular Volume 83.1 fl (85-98); Mean Platelet Volume 9.8 fL (7.4-10.4); Monocytes # 0.8 10^3/uL (0.2-0.9); Neutrophils # 10.18 10^3/uL (1.8-7.7); Neutrophils % 79.6 %; Nucleated Red Blood Cells % 0 %; Platelet Count 303 10^3/cmm (157-399); Red Blood Count 4.13 10^6/uL (3.85-5.65); Red Cell Distribution Width 14.6 % (12.1-15.1); White Blood Count 12.79 10^3/uL (3.29-11.43)
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
[2025-02-17] MEDS: ceFAZolin 3,000 MG in sodium chloride 0.9% (plus) 100 ML 200 MG IV (17:43)
[2025-02-17] MEDS: citric acid-sodium citrate 30 mL UDC PO (17:43)
[2025-02-17] MEDS: metoclopramide 5 mg/mL SDV 2 mL 10 MG IVP (17:43)
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
--- NOTE | 2025-02-17 19:26 | P.OP_ITS ---
Operative Report Date of procedure: February 17, 2025 Pre-op diagnosis: 29-year-old 4 para 0-0-3-0 at 39 weeks estimated gestational age with breech presentation and spontaneous rupture membranes Post-op diagnosis: Same Procedure done: Low-transverse section Specimens removed/disposition: 1. Female infant with a weight of 7 pounds 13 ounces and Apgars of 8 and 9 2. Placenta with a three-vessel cord delivered intact Surgeon: River Dykes MD Estimated blood loss (mL): 1,000 Complications: None Procedure: The patient was brought back to the operating room where she was prepped and draped in usual sterile fashion. Anesthesia was found to be adequate. A lower transverse skin incision was then made with a #10 blade. I then dissected down to the underlying subcutaneous tissue until arriving at the prerectal fascia. The fascia was then nicked with the scalpel bilaterally. The fascial incisions were then carried laterally with Soto scissors. Attention was then turned to the superior aspect of the incision which was grasped with kochers and tented up away from the underlying rectus abdominis muscles. The muscles were then dissec don away from the fascia manually, and later with Soto scissors. Attention was then turned to the inferior aspect of the incision, and the fascia was dissected away from the underlying muscle in similar fashion. The rectus abdominis muscles were then spread manually. The peritoneum was entered manually. Excellent visualization of the uterus was noted. A lower transverse uterine incision was then made with a #10 blade. Upon arriving at the intrauterine cavity, the uterine incision was then extended manually. The was noted to be in a breech position the baby was delivered without difficulty. There was no meconium. There was a nuchal cord x 2 which was reduced after delivery of the baby.. The cord was cut and clamped. The baby was then handed to the waiting nurse. The placenta was removed intact. The uterus was externalized. The intrauterine cavity was cleansed of any remaining debris. The uterine incision was reapproximated in 2 layers. The first layer was performed with 0 Vicryl in a running locked stitch. The second layer was an imbricating stitch also using 0 Vicryl. The uterus was replaced into the abdomen. The peritoneum was then irrigated with warm saline. I reexamined the uterine incision and found it to be hemostatic. The rectus abdominis muscles were then reapproximated using 0 Vicryl in a running stitch. The fascia was then reapproximated using 0 Vicryl in running stitch. The subcutaneous tissue was reapproximated using 0 Vicryl in a running stitch. The skin was then reapproximated using 4-0 Vicryl in a running subcutaneous stitch. Steri-Strips were placed.. A sterile dressing was placed. All counts were correct x2. Both the mother and baby were in stable condition.
[2025-02-17] MEDS: dextrose 5%-lactated ringers 1,000 ML 125 ML IV (21:30)
[2025-02-18 00:14] VITALS: BP 117/59; PULSE 82
[2025-02-18] MEDS: ketorolac 30 mg/mL INJ IVP ×2 (01:13→10:13)
[2025-02-18 02:45] VITALS: BP 110/60; PULSE 85; TEMP 36.9
[2025-02-18 05:03] VITALS: BP 98/55; PULSE 76
[2025-02-18 05:38] LABS: Hematocrit 27.7 % (36-47); Mean Corpuscular HGB Conc 31.8 g/dL (30-55); Mean Corpuscular Hemoglobin 26.7 pg (27-33); Mean Corpuscular Volume 84.2 fl (85-98); Mean Platelet Volume 9.9 fL (7.4-10.4); Platelet Count 225 10^3/cmm (157-399); Red Blood Count 3.29 10^6/uL (3.85-5.65); Red Cell Distribution Width 14.5 % (12.1-15.1); White Blood Count 13.18 10^3/uL (3.29-11.43)
--- OUTSIDE RECORDS SUMMARY | 2025-02-18 07:48 | XMS_ITS | Data Portability ---
Author Organization [facility] Ibrahima Busch [facility], [place] [facility] Address [address] [address] Assessment Encounter Date Assessment Date Assessment LastModified by Organization Details LastModified Time 02/16/2025 02/16/2025 Nitrazine negative. [email or web address] Not available 02/16/2025 15:08:17 Plan of Treatment Reminders Order Date Submit Date Provider Last Modified By Organization Details Last Modified Time Details Appointments RETURN OB 2024 08:40A M River Dykes MD Not available Not available Not available Lab urinalysi s, complete 2024 025 [facility] ([facility]), [address] [place], [address], 02/14/2025 19:04:11 streptoco ccus group B, culture, unspecifi ed specimen 2024 025 [facility], [address] [place] [address] , [facility] [address], [address], 01/28/2025 10:44:29 Referral None recorded. Procedures None recorded. Surgeries None recorded. Imaging None recorded. Medication Orders None recorded. Patient TargetsNo targets recorded. Patient InstructionsNo instructions recorded. Reason for Referral None Reported. Results Created Date Observation Date Name Description Value Unit Range Abnormal Flag Note LastModifiedBy Organization Detail LastModifiedTime 01/25/20 25 01/28/2025 STREP TOCOC CUS, GROUP B CULTU RE streptococcu s, group B culture SEE NOTE STREP TOCOC CUS, GROUP B CULTU RE Micro Numbe r: [id number] Test Statu s: Final Speci men Sourc e: Vagin al/an orect al Speci men Quali ty: Adequ ate Resul t: No group B Strep tococ cus isola don Note per CDC guide lines optim al recov padma is achie moe by swabb ing both the lower vagin a and rectu m (thro ugh the anal sphin cter) . Not Available [facility] [address] [place], [address], 01/28/2025 10:44:29 02/12/20 25 02/11/2025 URINA LYSIS WITH MICRO color YELLOW Not Available [facility] [address], [address], 02/11/2025 16:34:49 02/12/20 25 02/11/2025 URINA LYSIS WITH MICRO clarity CLEAR Not Available [facility] [address], [address], 02/11/2025 16:34:49 02/12/20 25 02/11/2025 URINA LYSIS WITH MICRO glu NEGATI VE Not Available [facility] [address] [address], [place], [address], 02/11/2025 16:34:49 02/12/20 25 02/11/2025 URINA LYSIS WITH MICRO bili NEGATI VE Not Available [facility] [address], [address], 02/11/2025 16:34:49 02/12/20 25 02/11/2025 URINA LYSIS WITH MICRO ket NEGATI VE Not Available [facility] [address] [address], [place], [address], 02/11/2025 16:34:49 02/12/20 25 02/11/2025 URINA LYSIS WITH MICRO S.g 1.020 1.005- 1.025 Not Available [facility] [address] [facility] [address], [place], [address], 02/11/2025 16:34:49 02/12/20 25 02/11/2025 URINA LYSIS WITH MICRO pH 7.0 5.0-7. 0 Not Available [facility] [address] [facility] [address], [place], [address], 02/11/2025 16:34:49 02/12/20 25 02/11/2025 URINA LYSIS WITH MICRO pro NEGATI VE Not Available [facility] [address] [facility] [address], [place], [address], 02/11/2025 16:34:49 02/12/20 25 02/11/2025 URINA LYSIS WITH MICRO uro 0.2 E.U./D L Not Available [facility] [address] [facility] [address], [place], [address], 02/11/2025 16:34:49 02/12/20 25 02/11/2025 URINA LYSIS WITH MICRO nit NEGATI VE Not Available [facility] [address] [facility] [address], [place], [address], 02/11/2025 16:34:49 02/12/20 25 02/11/2025 URINA LYSIS WITH MICRO blo NEGATI VE Not Available [facility] [address] [facility] [address], [place], [address], 02/11/2025 16:34:49 02/12/20 25 02/11/2025 URINA LYSIS WITH MICRO leo 3+ abnormal Not Available [facility] [address] [facility] [address], [place], [address], 02/11/2025 16:34:49 02/12/20 25 02/11/2025 URINA LYSIS WITH MICRO WBC 50-60 abnormal Not Available [facility] [address], [place], [address], 02/11/2025 16:34:49 02/12/20 25 02/11/2025 URINA LYSIS WITH MICRO RBC 2-3 Not Available [facility] [address], [place], [address], 02/11/2025 16:34:49 02/12/20 25 02/11/2025 URINA LYSIS WITH MICRO epi cells 20-25 abnormal Not Available [facility] [address], [place], [address], 02/11/2025 16:34:49 02/12/20 25 02/11/2025 URINA LYSIS WITH MICRO bacteria 1+ MIXED ANN abnormal Not Available [facility] [address], [place], [address], 02/11/2025 16:34:49 02/12/20 25 02/11/2025 URINA LYSIS WITH MICRO other NG Not Available [facility] [address], [place], [address], 02/11/2025 16:34:49 Result Notes None recorded. Problems Name Problem SNOMED Code Status Onset Date Resolution Date Notes Provider Name and Address Organization Details Recorded Time Normal in multigravid a 5949307485880 06 Active 2023 ROBERT lin [facility] 5 17:15:23 Normal in multigravid a 0127645503783 06 Active 2023 ROBERT lin [facility] 5 17:15:23 Urine protein test = + 291190774 Active 2024 PEDRO Hinds [facility] 5 11:33:52 Problem Notes None recorded. Procedures Surgical History Date Name Laterality Status Provider Name and Address Organization Details Recorded Time 024 sampling of cervix for Papanicolaou smear completed PEDRO DIGGS [facility], LClaudiaL.CClaudia 01/24/2025 12:04:27 excision of septum of uterus completed [facility], LClaudiaLSoco 07/01/2024 14:08:52 tonsillectomy and adenoidectomy completed [facility], LClaudiaLClaudiaCClaudia 01/07/2025 17:14:21 appendectomy completed [facility], Delphine 01/07/2025 17:14:33 wrist repair completed [facility], DylanLClaudiaCClaudia 01/07/2025 17:15:06 Imaging Results None recorded. Procedure Notes None recorded. Medical Equipment None Reported. Allergies Allergen ID Allergen Name Allergen Category Reaction Reaction Severity Criticality Documentation Date Start Date Code Code System Note Provider Name and Address Organization Details Recorded Time 96267 latex environme nt,medica tion rash Not available Not available 07/01/2024 38067 91 RxNorm [facility] L[facility]ia[facility] 4 14:04:49 64904 adhesive environme nt,medica tion rash Not available Not available 07/01/2024 72682 UNK [facility]CClaudia 4 14:04:59 Medications Name Sig Start Date Stop Date Status Note LastModified by Organization Details LastModified Time aspirin 81 mg tablet,nichelle yed release Take 1 tablet every day by oral route. active Not Available Not Available No t Available buspirone 7.5 mg tablet Take 1 tablet twice a day by oral route. active Not Available Not Available No t Available sertraline 50 mg tablet Take 1 tablet every day by oral route. active Not Available Not Available No t Available Vitamin 27 mg iron-0.8 mg tablet Take 1 tablet every day by oral route. active Not Available Not Available No t Available Ovidrel 250 mcg/0.5 mL subcutaneou s syringe ADMINISTE R 1 ML UNDER THE SKIN 1 TIME FOR 1 DOSE 07/01 completed Not Available Not Available Not Available progesteron e 200 mg vaginal suppository Insert 1 supposito ry twice a day by vaginal route. 08/13 completed Not Available Not Available Not Available Vitals Date Recorded Body height Body mass index (BMI) Body weight Oxygen saturation Oxygen saturation in Arterial blood by Pulse oximetry Heart rate Respiratory rate Body temperature Systolic blood pressure Diastolic blood pressure Provider Name and Address Organization Details Last Updated DateTime 5 173.99 cm 50.5 kg/m2 290290. 03 g 98 % 98 % 97 /min 18 /min 98 [degF] 118 mm[Hg] 74 mm[Hg] PEDRO [facility]audia 5 12:11:59 Date Recorded Body height Body mass index (BMI) Body weight Oxygen saturation Oxygen saturation in Arterial blood by Pulse oximetry Heart rate Respiratory rate Body temperature Systolic blood pressure Diastolic blood pressure Provider Name and Address Organization Details Last Updated DateTime 5 173.99 cm 50.4 kg/m2 704313. 127652 g 98 % 98 % 79 /min 18 /min 99 [degF] 122 mm[Hg] 76 mm[Hg] [facility] 5 10:59:03 Date Recorded Body height Body mass index (BMI) Body weight Respiratory rate Body temperature Heart rate Oxygen saturation Oxygen saturation in Arterial blood by Pulse oximetry Systolic blood pressure Diastolic blood pressure Provider Name and Address Organization Details Last Updated DateTime 5 173.99 cm 50.8 kg/m2 905854. 81 g 20 /min 98.2 [degF] 92 /min 98 % 98 % 162 mm[Hg] 106 mm[Hg] ROBERT MENDOZA [facility] 5 12:29:13 Date Recorded Body height Body mass index (BMI) Body weight Oxygen saturation Oxygen saturation in Arterial blood by Pulse oximetry Heart rate Respiratory rate Body temperature Systolic blood pressure Diastolic blood pressure Provider Name and Address Organization Details Last Updated DateTime 5 173.99 cm 50.6 kg/m2 642742. 22 g 98 % 98 % 81 /min 18 /min 98.6 [degF] 122 mm[Hg] 74 mm[Hg] PEDRO ALFRED [facility] 5 11:48:39 Date Recorded Body height Body mass index (BMI) Body weight Respiratory rate Heart rate Oxygen saturation Oxygen saturation in Arterial blood by Pulse oximetry Body temperature Systolic blood pressure Diastolic blood pressure Provider Name and Address Organization Details Last Updated DateTime 5 173.99 cm 51.2 kg/m2 164747. 59 g 20 /min 90 /min 98 % 98 % 98 [degF] 122 mm[Hg] 76 mm[Hg] ROBERT EMNDOZA [facility] 5 14:33:54 Social History Question Answer Notes LastModified by Organizat ion Details LastModified Time Tobacco Smoking Status Never Smoker ROBERTMELODY MENDOZA [facility] 07/01/2024 14:07:58 What Is Your Level Of Alcohol Consumption? None Information not available 07/01/2024 Are You Currently Employed? Yes Information not available 07/01/2024 Do You Or Have You Ever Used E-cigarettes Or Vape? 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 Information not available 07/01/2024 Do You Use Any Illicit Or Recreational Drugs? No Information not available 07/01/2024 Do You Or Have You Ever Used Any Other Forms Of Tobacco Or Nicotine? Yes Information not available 07/01/2024 Sex: Unknown Functional Status Question Answer Note LastModified by Organization D etails LastModified Time Are you able to care for yourself? Yes Information n ot available 07/01/2024 Mental Status None recorded. Family History Relationship Description Onset Age of this Age Resolved Age Notes LastModified by Organization Details LastModified Time Father No current problems or disability [email or web address] Not available 0 08/13/2024 10:18:44 Mother No current problems or disability [email or web address] Not available 0 08/13/2024 10:18:44 Medical History No medical history recorded. Gynecological History Statement/Question Response Date of LMP 05/07/2024 LMP Definite Obstetrics History GPAL:G 4 P 0 0 3 0 Type Value Spontaneous 3 Total 4 Immunizations Vaccine Type Date Status Note Provider Nam e and Address Organization Details Recorded Time Influenza, split virus, quadrivalent, PF 09/12/2023 [facility]/13/[facility]24 10:04:56 Past Encounters Encounter ID Performer Location Encounter Start Date Encounter Closed Date Diagnosis/Indication Diagnosis SNOMED-CT Code Diagnosis ICD10 Code Diagnosis Note [id number] River Dykes MD [facility] ([facility]) [address] [place] [address] 5 07/01/2024 13:53:30 07/01/2024 15:03:32 Normal in multigravida 7937368224 65151 Z34.81 Gestation period, 7 weeks 38531390 Z3A.01 Past pregn dominic history of miscarriage 957229040 Z87.59 [id number] ROBBIE ESPERANZA [facility] ([facility]) [address] [place] [address] 5 07/01/2024 14:51:15 07/01/2024 16:16:40 Normal in multigravida 2817020087 52452 Z34.81 [id number] River Dykes MD [facility] ([facility]) [address] [place] [address]686[address]570 5 08/13/2024 09:48:45 08/13/2024 10:44:17 Normal in multigravida 4867332876 54325 Z34.81 [id number] ROBBIE ESPERANZA [facility] ([facility]) [address] [place] [address] 19034[address]358 5 08/17/2024 15:52:59 08/20/2024 10:52:00 [id number] River Dykes MD [facility] ([facility]) [address] [place] [address] 72578[address]801 5 09/13/2024 09:47:17 09/13/2024 12:13:32 Normal in multigravida 9109827205 84255 Z34.81 Gestation period, 16 weeks 37721118 Z3A.16 [id number] ROBERT MENDOZA [facility] ([facility]) [address] [place] [address] 09553-687 5 10/04/2024 11:36:08 10/05/2024 11:11:57 [id number] River Dykes MD [facility] ([facility]) [address] [place] [address] 5 10/11/2024 11:37:37 10/11/2024 15:06:09 Normal in multigravida 4127822958 47220 Z34.81 Gestation period, 20 weeks 37718240 Z3A.20 [id number] River Dykes MD [facility] ([facility]) [address] [place] [address] 95395-794 5 11/08/2024 09:43:49 11/08/2024 10:49:35 Normal in multigravida 6553652206 44075 Z34.81 Gestation period, 24 weeks 253476872 Z3A.24 [id number] River Dykes MD [facility] ([facility]) [address] [place] [address] 77479-147 5 11/25/2024 12:14:20 11/25/2024 14:52:10 Normal in multigravida 6888961929 08740 Z34.81 Gestation period, 27 weeks 13718626 Z3A.27 [id number] River Dykes MD [facility] ([facility]) [address] [place] [address] 83977-082 5 12/10/2024 10:43:09 12/10/2024 11:54:51 Normal in multigravida 6093552679 73197 Z34.81 Gestation period, 29 weeks 00810205 Z3A.29 [id number] River Dykes MD [facility] ([facility]) [address] [place] [address] 50223-006 5 12/27/2024 11:12:17 12/27/2024 13:03:05 Normal in multigravida 9444098548 24595 Z34.81 Gestation period, 31 weeks 00010418 Z3A.31 [id number] ROBBIE MATA [facility] ([facility]) [address] [place] [address] 81710-122 5 12/28/2024 12:33:08 12/29/2024 15:48:02 [id number] River Dykes MD [facility] ([facility]) [address] [place] [address] 73452-306 5 01/10/2025 11:25:06 01/10/2025 13:19:46 Normal in multigravida 8378092018 70937 Z34.81 Gestation period, 33 weeks 68267443 Z3A.33 [id number] River Dykes MD [facility] ([facility]) [address] [place] [address] 85361-241 5 01/24/2025 11:23:28 01/24/2025 14:45:41 Normal in multigravida 2599561920 61103 Z34.81 Gestation period, 35 weeks 74899017 Z3A.35 [id number] River Dykes MD [facility] ([facility]) [address] [place] [address] 16686-996 5 01/31/2025 10:40:12 01/31/2025 11:20:28 Normal in multigravida 8473932495 28313 Z34.83 Gestation period, 36 weeks 86536320 Z3A.36 [id number] River Dykes MD [facility] ([facility]) [address] [place] [address] 43994-479 5 02/11/2025 11:46:18 02/11/2025 13:54:29 Normal in multigravida 8364098193 33157 Z34.83 Gestation period, 38 weeks 53256205 Z3A.38 Urine prot ein test = + 672187930 R80.9 [id number] River Dykes MD [facility] ([facility]) [address] [place] [address] 02/14/2025 11:29:18 02/14/2025 12:11:03 Normal in multigravida 7148942171 72610 Z34.83 Gestation period, 38 weeks 27632077 Z3A.38 [id number] River Dykes MD [facility]) [address] [place] [address] 02/16/2025 14:12:35 02/16/2025 15:21:32 Normal in multigravida 0821377941 19501 Z34.83 Gestation period, 39 weeks 55158286 Z3A.39 Health Concerns Section Related Observation LastModified by Organization Detai ls LastModified Time None Recorded Concern Status LastModified by Organization Details LastModified Time None Recorded Advance Directives Directive None Recorded Payers Encounter Date Sequence Insurance Name Policy Number Policy Hebert Covered Member ID Hebert Member ID Guarantor Name 01/24/2025 1 [employer] [id number] Mayo Dieter [id number] Mayo Dieter 01/31/2025 1 [employer] [id number] Mayo Dieter [id number] Mayo Dieter 02/11/2025 1 [employer] [id number] Mayo Dieter [id number] Mayo Dieter 02/14/2025 1 [employer] [id number] Mayo Dieter [id number] Mayo Dieter 02/16/2025 1 [employer] [id number] Mayo Dieter [id number] Mayo Dieter Notes Date Note Type Note Provider Name and Address Organization Details Recorded Time 01/24/2025 text/html jr ob routineRep orted bypatient.Associated Symptoms:no cramping; no contractions; normal movement; no bleeding; no vaginal discharge; no vaginal/vulvar itching or irritation; no dysuria; no frequency; no urgency; no hematuria; no fever; no nausea; no emesis; no diarrhea/loose stool; no visual changes; no headache; no dizziness;abdominal pain(mild);constipati on;edema(feet/hands); breathlessnessNotes:h eartburn,low back pain, vaginal pressureDenies any alcohol, tobacco, or drug use River Dykes MD [address] [place], [address], [facility] 01/24/2025 12:23:42 01/31/2025 text/html ob routineRep orted bypatient.Associated Symptoms:no abdominal pain; no cramping; normal movement; no bleeding; no vaginal discharge; no vaginal/vulvar itching or irritation; no dysuria; no frequency; no urgency; no hematuria; no fever; no nausea; no emesis; no diarrhea/loose stool; no visual changes; no headache; no dizziness; no breathlessness;contra ctions(irreg);constip ation;edema(feet/hand s)Notes:heartburn,low back pain, vaginal pressureDenies any alcohol, tobacco, or drug use River Dykes MD [address] [place] [address], [address], [facility] 01/31/2025 11:15:53 02/11/2025 text/html ob routineRep orted bypatient.Associated Symptoms:no abdominal pain; normal movement; no bleeding; no vaginal/vulvar itching or irritation; no dysuria; no frequency; no urgency; no hematuria; no fever; no nausea; no emesis; no constipation; no diarrhea/loose stool; no visual changes; no headache; no breathlessness;crampi ng;contractions(braxt on hill);vaginal discharge;edema(feet/ hands/lips);dizziness Notes:heartburn,low back pain, vaginal pressureDenies any alcohol, tobacco, or drug use River Dykes MD [address] [place] [address], [address], [facility] 02/14/2025 06:32:39 02/14/2025 text/html ob routineRep orted bypatient.Associated Symptoms:normal movement; no bleeding; no vaginal/vulvar itching or irritation; no dysuria; no frequency; no urgency; no hematuria; no fever; no nausea; no emesis; no diarrhea/loose stool; no visual changes; no headache; no dizziness; no breathlessness;abdomi nal pain;cramping;contrac tions([place]);vaginal discharge;constipatio n;edema(feet/hands/li ps)Notes:heartburn,lo w back pain, vaginal pressureDenies any alcohol, tobacco, or drug use Pt states this weekend her Bp has been running 116/68-120/72 River Dykes MD [address] [place], [address], [facility] 02/14/2025 12:07:18 02/16/2025 text/html jr ob routineRep orted bypatient.Associated Symptoms:normal movement; no bleeding; no vaginal/vulvar itching or irritation; no dysuria; no frequency; no urgency; no hematuria; no fever; no nausea; no emesis; no diarrhea/loose stool; no visual changes; no headache; no dizziness; no breathlessness;abdomi nal pain;cramping;contrac tions([place]);possible ROM;vaginal discharge;constipatio n;edema(feet/hands/li ps)Notes:heartburn,lo w back pain, vaginal pressureDenies any alcohol, tobacco, or drug use Pt is concerned that she is having some leaking fluid vaginally that started around 0930 this morning. River Dykes MD [address] [place], [address], [facility] 02/16/2025 15:09:24 OBGyn Episode Ob Episode Information Episode Created Date Number of Fetuses Patient Bloodtype Patient rh Status Prepregnancy Weight lbs Domestic Partner Domestic Partner Phone Father Name Investment Consultant Status 07/01/20 24 1 CLOSED Fetus Data First Name Last Name Admitted to NICU Weight (g) Sex Living Outcome Pediatric Complications Fetus ID Race Codes Race Delivery Type 5424 Murali Calculation Initial Murali Date Initial Exam Date Initial Exam Provider Initial Ultrasound Date Last Menstrual Period Date Ultra Sound Weeks Gestation 0 Eighteen To Twenty Week Murali Update Ultra Sound Date Fundal Height At Umbil Quickening Date Ultra Sound Latest Weeks Gestation Final Murali Confirmed By Final Murali Confirmed Date Final Murali Date Ultra Sound Latest Days Gestation 0 0 Menstrual History Last Menstrual Date Menses Monthly On Bcp Conception Prior Menses Frequency Hcg Plus Date Menarche Onset Age Delivery Information Delivery Date Delivery Type Labor Anesthesia Weeks Gestation Incision Type Labor Labor Length Hrs Delivered By Post Complications Tubal Sterilization Discharge Date Comments Discharge Information Feeding Method Contraceptive Method Maternal HG B and HCT Levels Ob Episode Information Episode Created Date Number of Fetuses Patient Bloodtype Patient rh Status Prepregnancy Weight lbs Domestic Partner Domestic Partner Phone Father Name Investment Consultant Status 07/01/20 24 1 A Positive OPEN Fetus Data First Name Last Name Admitted to NICU Weight (g) Sex Living Outcome Pediatric Complications Fetus ID Race Codes Race Delivery Type [id number] Problems Problem Notes Problem Name Start Date End Date Resolution Snomed Code Not e Normal in multigravida 08/12/2024 [id number] Murali Calculation Initial Murali Date Initial Exam Date Initial Exam Provider Initial Ultrasound Date Last Menstrual Period Date Ultra Sound Weeks Gestation 02/22/2025 07/01/2024 07/01/2024 05/07/2024 6 Eighteen To Twenty Week Murali Update Ultra Sound Date Fundal Height At Umbil Quickening Date Ultra Sound Latest Weeks Gestation Final Murali Confirmed By Final Murali Confirmed Date Final Murali Date Ultra Sound Latest Days Gestation 0 0 Pre-mel Flowsheet Flowsheet Date 07/01/2024 Vasquez Score Blood Edema Fundus Height Fundus Units Glucose Ketones Leukocytes Nitrite Labor Signs Protein Cervic Dilation Cervic Effacement Cervic Station Type Weight in lbs Pre/Post Dialysis Refused Weight 312.84406507855 BP Diastolic BP Location Tested BP Systolic BP Type 82 128 sitting Fetus Heart Rate Present Fetus Movement Comments Flowsheet Date 07/01/2024 Vasquez Score Blood Edema Fundus Height Fundus Units Glucose Ketones Leukocytes Nitrite Labor Signs Protein Cervic Dilation Cervic Effacement Cervic Station Type Weight in lbs Pre/Post Dialysis Refused BP Diastolic BP Location Tested BP Systolic BP Type Fetus Heart Rate Present Fetus Movement Comments Flowsheet Date 07/01/2024 Vasquez Score Blood Edema Fundus Height Fundus Units Glucose Ketones Leukocytes Nitrite Labor Signs Protein Cervic Dilation Cervic Effacement Cervic Station Type Weight in lbs Pre/Post Dialysis Refused BP Diastolic BP Location Tested BP Systolic BP Type Fetus Heart Rate Present Fetus Movement Comments U/s on 07/01/24, MURALI 02/22/25, EGA 6.2. FHR 109 Flowsheet Date 08/13/2024 Vasquez Score Blood Edema Fundus Height Fundus Units Glucose Ketones Leukocytes Nitrite Labor Signs Protein Cervic Dilation Cervic Effacement Cervic Station Type Weight in lbs Pre/Post Dialysis Refused 309.188102421333 BP Diastolic BP Location Tested BP Systolic BP Type 74 120 sitting Fetus Heart Rate Present A 160 Present Fetus Movement Comments NOB, breast tenderness, fati adri, nausea/vomiting, dizziness, constipation Flowsheet Date 08/17/2024 Vasquez Score Blood Edema Fundus Height Fundus Units Glucose Ketones Leukocytes Nitrite Labor Signs Protein Cervic Dilation Cervic Effacement Cervic Station Type Weight in lbs Pre/Post Dialysis Refused BP Diastolic BP Location Tested BP Systolic BP Type Fetus Heart Rate Present Fetus Movement Comments Flowsheet Date 08/18/2024 Vasquez Score Blood Edema Fundus Height Fundus Units Glucose Ketones Leukocytes Nitrite Labor Signs Protein Cervic Dilation Cervic Effacement Cervic Station Type Weight in lbs Pre/Post Dialysis Refused BP Diastolic BP Location Tested BP Systolic BP Type Fetus Heart Rate Present Fetus Movement Comments u/s on 08/17/24, MURALI 02/22/25, EGA 13.0 Flowsheet Date 09/13/2024 Vasquez Score Blood Edema Fundus Height Fundus Units Glucose Ketones Leukocytes Nitrite Labor Signs Protein Cervic Dilation Cervic Effacement Cervic Station none none Negative neg Type Weight in lbs Pre/Post Dialysis Refused 309.324371483181 BP Diastolic BP Location Tested BP Systolic BP Type 70 118 sitting Fetus Heart Rate Present A 142 Present Fetus Movement Comments headaches, she can feel her heartbeat in her head, constipation, edema in feet, pink tinged spotting occ, Flowsheet Date 10/04/2024 Vasquez Score Blood Edema Fundus Height Fundus Units Glucose Ketones Leukocytes Nitrite Labor Signs Protein Cervic Dilation Cervic Effacement Cervic Station Type Weight in lbs Pre/Post Dialysis Refused BP Diastolic BP Location Tested BP Systolic BP Type Fetus Heart Rate Present Fetus Movement Comments u/s on 10/04/24, MURALI 02/18/25, EGA 20.2, Breech presentation, Placenta is posterior, no subchorionic bleed. JULISA normal for gestational age, face: not well visualized, heart four chamber view, heart size and position: not well visualized. heart RVOT and LVOT : not well visualized. Flowsheet Date 10/11/2024 Vasquez Score Blood Edema Fundus Height Fundus Units Glucose Ketones Leukocytes Nitrite Labor Signs Protein Cervic Dilation Cervic Effacement Cervic Station 22 cm none none Negative neg Type Weight in lbs Pre/Post Dialysis Refused 316.375476888412 BP Diastolic BP Location Tested BP Systolic BP Type 64 118 sitting Fetus Heart Rate Present A 148 Present Fetus Movement A Yes Comments headache, dizziness, N/V, fa tigue, constipation, breast tenderness, pelvic pain, edema in feet Flowsheet Date 11/08/2024 Vasquez Score Blood Edema Fundus Height Fundus Units Glucose Ketones Leukocytes Nitrite Labor Signs Protein Cervic Dilation Cervic Effacement Cervic Station 24 cm none trace Type Weight in lbs Pre/Post Dialysis Refused Weight 319.219687176565 BP Diastolic BP Location Tested BP Systolic BP Type 78 136 Fetus Heart Rate Present A 152 Present Fetus Movement A Yes Comments pelvic and vaginal pressure, swelling in feet, nausea Flowsheet Date 11/25/2024 Vasquez Score Blood Edema Fundus Height Fundus Units Glucose Ketones Leukocytes Nitrite Labor Signs Protein Cervic Dilation Cervic Effacement Cervic Station 30 cm none trace Negative neg Type Weight in lbs Pre/Post Dialysis Refused Weight 326.614933413670 BP Diastolic BP Location Tested BP Systolic BP Type 76 130 sitting Fetus Heart Rate Present A 144 Present Fetus Movement A Yes Comments occ nausea/vomiting, edema i n feet, vaginal pressure, heartburn,low back pain. Flowsheet Date 12/10/2024 Vasquez Score Blood Edema Fundus Height Fundus Units Glucose Ketones Leukocytes Nitrite Labor Signs Protein Cervic Dilation Cervic Effacement Cervic Station 33 cm none trace Negative neg Type Weight in lbs Pre/Post Dialysis Refused Weight 329.266435217627 BP Diastolic BP Location Tested BP Systolic BP Type 74 128 sitting Fetus Heart Rate Present A 144 Present Fetus Movement A Yes Comments nausea/vomiting, edema-feet, heartburn, low back pain Flowsheet Date 12/27/2024 Vasquez Score Blood Edema Fundus Height Fundus Units Glucose Ketones Leukocytes Nitrite Labor Signs Protein Cervic Dilation Cervic Effacement Cervic Station 34 cm none none Negative trace Type Weight in lbs Pre/Post Dialysis Refused Weight 327.05807688894 BP Diastolic BP Location Tested BP Systolic BP Type 76 134 sitting Fetus Heart Rate Present A 154 Present Fetus Movement A Yes Comments nausea, sob, low back pain, heartburn, vaginal pressure Flowsheet Date 12/28/2024 Vasquez Score Blood Edema Fundus Height Fundus Units Glucose Ketones Leukocytes Nitrite Labor Signs Protein Cervic Dilation Cervic Effacement Cervic Station Type Weight in lbs Pre/Post Dialysis Refused BP Diastolic BP Location Tested BP Systolic BP Type Fetus Heart Rate Present Fetus Movement Comments Flowsheet Date 01/10/2025 Vasquez Score Blood Edema Fundus Height Fundus Units Glucose Ketones Leukocytes Nitrite Labor Signs Protein Cervic Dilation Cervic Effacement Cervic Station 35.5 cm none none Negative trace Type Weight in lbs Pre/Post Dialysis Refused Weight 335.506923533277 BP Diastolic BP Location Tested BP Systolic BP Type 74 128 sitting Fetus Heart Rate Present A 138 Present Fetus Movement A Yes Comments low back pain, heartburn, ed viry to feet, constipation, mild vaginal pressure, Flowsheet Date 01/24/2025 Vasquez Score Blood Edema Fundus Height Fundus Units Glucose Ketones Leukocytes Nitrite Labor Signs Protein Cervic Dilation Cervic Effacement Cervic Station 36 cm none none Negative trace Type Weight in lbs Pre/Post Dialysis Refused Weight 337.589781483128 BP Diastolic BP Location Tested BP Systolic BP Type 74 118 Fetus Heart Rate Present A 136 Present Fetus Movement A Yes Comments Epi consult - 02/11/25, group B today, mild abd pain, constipation, edema in feet/hands,heartburn, low back pain, occ vaginal pressure. Flowsheet Date 01/31/2025 Vasquez Score Blood Edema Fundus Height Fundus Units Glucose Ketones Leukocytes Nitrite Labor Signs Protein Cervic Dilation Cervic Effacement Cervic Station 38 cm none trace Negative [place] neg 40% -4 Type Weight in lbs Pre/Post Dialysis Refused 336.59977988183 BP Diastolic BP Location Tested BP Systolic BP Type 76 122 sitting Fetus Heart Rate Present A 137 Present Fetus Movement A Yes Comments vaginal pressure, back pain, heartburn, edema feet/hands Flowsheet Date 02/01/2025 Vasquez Score Blood Edema Fundus Height Fundus Units Glucose Ketones Leukocytes Nitrite Labor Signs Protein Cervic Dilation Cervic Effacement Cervic Station Type Weight in lbs Pre/Post Dialysis Refused BP Diastolic BP Location Tested BP Systolic BP Type Fetus Heart Rate Present Fetus Movement Comments Group B NegativeOB records s ent Flowsheet Date 02/11/2025 Vasquez Score Blood Edema Fundus Height Fundus Units Glucose Ketones Leukocytes Nitrite Labor Signs Protein Cervic Dilation Cervic Effacement Cervic Station 40 cm none 2+ [place] 1+ Type Weight in lbs Pre/Post Dialysis Refused Weight 339.761674309853 BP Diastolic BP Location Tested BP Systolic BP Type 106 L arm 162 Fetus Heart Rate Present A 136 Present Fetus Movement A Yes Comments vaginal pressure and pain, s welling hand/feet/ lips, heartburn, back pain, vaginal discharge, cramps Flowsheet Date 02/14/2025 Vasquez Score Blood Edema Fundus Height Fundus Units Glucose Ketones Leukocytes Nitrite Labor Signs Protein Cervic Dilation Cervic Effacement Cervic Station 41 cm none 1+ Negative [place] trace Type Weight in lbs Pre/Post Dialysis Refused Weight 338.526397823829 BP Diastolic BP Location Tested BP Systolic BP Type 74 122 sitting Fetus Heart Rate Present A 138 Present Fetus Movement A Yes Comments abdominal pain/cramping, low back pain, vaginal pressure, edema off and on, heartburn Flowsheet Date 02/16/2025 Vasquez Score Blood Edema Fundus Height Fundus Units Glucose Ketones Leukocytes Nitrite Labor Signs Protein Cervic Dilation Cervic Effacement Cervic Station none trace Uterine Contract ions 1+ Type Weight in lbs Pre/Post Dialysis Refused Weight 342.099748765767 BP Diastolic BP Location Tested BP Systolic BP Type 76 L arm 122 sitting Fetus Heart Rate Present A 144 Present Fetus Movement A Yes Comments ctx, vaginal pressure, possi ble leaking fluid, cramps, pelvic pain, back pain, swelling Menstrual History Last Menstrual Date Menses Monthly On Bcp Conception Prior Menses Frequency Hcg Plus Date Menarche Onset Age 0605/07/2024 false Delivery Information Delivery Date Delivery Type Labor Anesthesia Weeks Gestation Incision Type Labor Labor Length Hrs Delivered By Post Complications Tubal Sterilization Discharge Date Comments Discharge Information Feeding Method Contraceptive Method Maternal HG B and HCT Levels Ob Episode Information Episode Created Date Number of Fetuses Patient Bloodtype Patient rh Status Prepregnancy Weight lbs Domestic Partner Domestic Partner Phone Father Name Investment Consultant Status 07/01/20 24 1 CLOSED Fetus Data First Name Last Name Admitted to NICU Weight (g) Sex Living Outcome Pediatric Complications Fetus ID Race Codes Race Delivery Type , Spontane ous 5423 Murali Calculation Initial Murali Date Initial Exam Date Initial Exam Provider Initial Ultrasound Date Last Menstrual Period Date Ultra Sound Weeks Gestation 0 Eighteen To Twenty Week Murali Update Ultra Sound Date Fundal Height At Umbil Quickening Date Ultra Sound Latest Weeks Gestation Final Murali Confirmed By Final Murali Confirmed Date Final Murali Date Ultra Sound Latest Days Gestation 0 0 Menstrual History Last Menstrual Date Menses Monthly On Bcp Conception Prior Menses Frequency Hcg Plus Date Menarche Onset Age Delivery Information Delivery Date Delivery Type Labor Anesthesia Weeks Gestation Incision Type Labor Labor Length Hrs Delivered By Post Complications Tubal Sterilization Discharge Date Comments 0 Discharge Information Feeding Method Contraceptive Method Maternal HG B and HCT Levels Ob Episode Information Episode Created Date Number of Fetuses Patient Bloodtype Patient rh Status Prepregnancy Weight lbs Domestic Partner Domestic Partner Phone Father Name Investment Consultant Status 07/01/20 24 1 CLOSED Fetus Data First Name Last Name Admitted to NICU Weight (g) Sex Living Outcome Pediatric Complications Fetus ID Race Codes Race Delivery Type , Spontane ous 5425 Murali Calculation Initial Murali Date Initial Exam Date Initial Exam Provider Initial Ultrasound Date Last Menstrual Period Date Ultra Sound Weeks Gestation 0 Eighteen To Twenty Week Murali Update Ultra Sound Date Fundal Height At Umbil Quickening Date Ultra Sound Latest Weeks Gestation Final Murali Confirmed By Final Murali Confirmed Date Final Murali Date Ultra Sound Latest Days Gestation 0 0 Menstrual History Last Menstrual Date Menses Monthly On Bcp Conception Prior Menses Frequency Hcg Plus Date Menarche Onset Age Delivery Information Delivery Date Delivery Type Labor Anesthesia Weeks Gestation Incision Type Labor Labor Length Hrs Delivered By Post Complications Tubal Sterilization Discharge Date Comments 1 Discharge Information Feeding Method Contraceptive Method Maternal HG B and HCT Levels
--- OUTSIDE RECORDS SUMMARY | 2025-02-18 07:48 | XMS_ITS | Continuity of Care Document ---
Author Organization [facility] Delphine Gray, [facility] ([facility]) Address [address] [place] [address] Assessment No assessment recorded. Plan of Treatment Reminders Order Date Submit Date Provider Last Modified By Organization Details Last Modified Time Details Appointments RETURN OB 2024 08:40A M River Dkyes MD Not available Not available Not available Lab None recorded . Referral None recorded . Procedures None recorded . Surgeries None recorded . Imaging None recorded . Medication Orders None recorded . Patient TargetsNo targets recorded. Patient InstructionsNo instructions recorded. Reason for Referral None Reported. Results Created Date Observation Date Name Description Value Unit Range Abnormal Flag Note LastModifiedBy Organization Detail LastModifiedTime 08/19/20 24 imagi ng/di agnos tic resul t No observ ation record ed. [email or web address] Not Available 2023 10:30:45 10/07/20 24 10/04/2024 US, obste tric, 2nd trime ster No observ ation record ed. [facility] [address] [place], [address], 10/18/2024 17:42:43 Result Notes None recorded. Problems Name Problem SNOMED Code Status Onset Date Resolution Date Notes Provider Name and Address Organization Details Recorded Time Normal in multigravid a 0681966506164 06 Active 2023 [facility] lin [place] [facility]23 Normal in multigravid a 6168809043808 06 Active 2023 ROBERT REJI [facility] 5 17:15:23 Urine protein test = + [id number] Active 2024 PEDRO ALFRED [facility] 5 11:33:52 Problem Notes None recorded. Procedures Surgical History Date Name Laterality Status Provider Name and Address Organization Details Recorded Time 024 sampling of cervix for Papanicolaou smear completed PEDRO DONTAE [facility] 01/24/2025 12:04:27 excision of septum of uterus completed [facility] 07/01/2024 14:08:52 tonsillectomy and adenoidectomy completed [facility] 01/07/2025 17:14:21 appendectomy completed [facility] 01/07/2025 17:14:33 wrist repair completed [facility] 01/07/2025 17:15:06 Imaging Results None recorded. Procedure Notes None recorded. Medical Equipment None Reported. Allergies Allergen ID Allergen Name Allergen Category Reaction Reaction Severity Criticality Documentation Date Start Date Code Code System Note Provider Name and Address Organization Details Recorded Time 39348 latex environme nt,medica tion rash Not available Not available 07/01/2024 77669 91 RxNorm ROBERT MENDOZA [facility] 4 14:04:49 35470 adhesive environme nt,medica tion rash Not available Not available 07/01/2024 38692 UNK ROBERT EMNDOZA [facility] 4 14:04:59 Medications Name Sig Start Date [...] Updated DateTime 5 173.99 cm 50.4 kg/m2 973757. 143519 g 98 % 98 % 79 /min 18 /min 99 [degF] 122 mm[Hg] 76 mm[Hg] PEDRO ALFRED [facility] 5 10:59:03 Social History Question Answer Notes LastModified by Organizat ion Details LastModified Time Tobacco Smoking Status Never Smoker ROBERT lin [facility] 07/01/2024 14:07:58 What Is Your Level [...] available 07/01/2024 What Is Your Relationship Status? [email or web address] Information not available 07/01/2024 Do You Use [...] Influenza, split virus, quadrivalent, PF 09/12/2023 completed PEDRO lin [facility] 08/13/2024 10:04:56 Past Encounters Encounter ID Performer Location Encounter Start Date Encounter Closed Date Diagnosis/Indication Diagnosis SNOMED-CT Code Diagnosis ICD10 Code Diagnosis Note [id number] River Dykes MD [facility] ([facility]) [address] [place] [phone] 01/10/2025 11:25:06 01/10/2025 13:19:46 Normal in multigravida 7803271218 56771 Z34.81 Gestation period, 33 weeks 66704865 Z3A.33 [id number] River Dykes MD [facility] ([facility]) [address] [place] [phone] 01/24/2025 11:23:28 01/24/2025 14:45:41 Normal in multigravida 0672760321 14507 Z34.81 Gestation period, 35 weeks 00768279 Z3A.35 [id number] River Dykes MD [facility] ([facility]) [address] [place] [address] [phone] 01/31/2025 10:40:12 01/31/2025 11:20:28 Normal in multigravida 9313809501 35399 Z34.83 Gestation period, 36 weeks 64917675 Z3A.36 Health Concerns Section Related Observation LastModified by Organization Detai ls LastModified Time None Recorded Concern Status LastModified by Organization Details LastModified Time None Recorded Payers Encounter Date Sequence Insurance Name Policy Number Policy Hebert Covered Member ID Hebert Member ID Guarantor Name 01/31/2025 1 [facility] [id number] Mayo Garcias [id number] Mayo Garcias Notes Date Note Type Note Provider Name and Address Organization Details Recorded Time 01/31/2025 text/html jr ob routineRep orted bypatient.Associated Symptoms:no abdominal pain; no cramping; normal movement; no bleeding; no vaginal discharge; no vaginal/vulvar itching or irritation; no dysuria; no frequency; no urgency; no hematuria; no fever; no nausea; no emesis; no diarrhea/loose stool; no visual changes; no headache; no dizziness; no breathlessness;contra ctions(irreg);constip ation;edema(feet/hand s)Notes:heartburn,low back pain, vaginal pressureDenies any alcohol, tobacco, or drug use River Dykes MD [address] [place] [address], [phone] 01/31/2025 11:15:53 OBGyn Episode Ob Episode Information Episode Created Date Number of Fetuses Patient Bloodtype Patient rh Status Prepregnancy Weight lbs Domestic Partner Domestic Partner Phone Father Name Cephalometric Analyst Status 07/01/20 24 1 A Positive OPEN Fetus Data First Name Last Name Admitted to NICU Weight (g) Sex Living Outcome Pediatric Complications Fetus ID Race Codes Race Delivery Type [id number] Problems Problem Notes Problem Name Start Date End Date Resolution Snomed Code Not e Normal in multigravida 08/12/2024 [id number] Murali Calculation Initial Murali Date Initial Exam [...] Ultra Sound Latest Days Gestation 0 0 Pre- Flowsheet Flowsheet Date 07/01/2024 Vasquez Score Blood Edema Fundus Height Fundus Units Glucose Ketones Leukocytes Nitrite Labor Signs Protein Cervic Dilation Cervic Effacement Cervic Station Type Weight in lbs Pre/Post Dialysis Refused Weight 312.82913219029 BP Diastolic BP Location Tested BP Systolic [...] Type Weight in lbs Pre/Post Dialysis Refused 309.153691799408 BP Diastolic BP Location Tested BP Systolic [...] Type Weight in lbs Pre/Post Dialysis Refused 309.635426918455 BP Diastolic BP Location Tested BP Systolic [...] Type Weight in lbs Pre/Post Dialysis Refused 316.366576628489 BP Diastolic BP Location Tested BP Systolic [...] Weight in lbs Pre/Post Dialysis Refused Weight 319.957412896563 BP Diastolic BP Location Tested BP Systolic BP Type 78 136 Fetus Heart Rate Present A 152 Present Fetus Movement A Yes Comments pelvic and vaginal pressure, swelling in feet, nausea Flowsheet Date 11/25/2024 Avsquez Score Blood Edema Fundus Height Fundus Units Glucose Ketones Leukocytes Nitrite Labor Signs Protein Cervic Dilation Cervic Effacement Cervic Station 30 cm none trace Negative neg Type Weight in lbs Pre/Post Dialysis Refused Weight 326.708341996167 BP Diastolic BP Location Tested BP Systolic [...] Weight in lbs Pre/Post Dialysis Refused Weight 329.169826848398 BP Diastolic BP Location Tested BP Systolic [...] Weight in lbs Pre/Post Dialysis Refused Weight 327.29752376211 BP Diastolic BP Location Tested BP Systolic [...] Weight in lbs Pre/Post Dialysis Refused Weight 335.903318526623 BP Diastolic BP Location Tested BP Systolic [...] Weight in lbs Pre/Post Dialysis Refused Weight 337.817771896370 BP Diastolic BP Location Tested BP Systolic [...] Cervic Station 38 cm none trace Negative [place] neg 40% -4 Type Weight in lbs Pre/Post Dialysis Refused 336.70040678078 BP Diastolic BP Location Tested BP Systolic [...] Effacement Cervic Station 40 cm none 2+ [place] Draper 1+ Type Weight in lbs Pre/Post Dialysis Refused Weight 339.736880998752 BP Diastolic BP Location Tested BP Systolic [...] Station 41 cm none 1+ Negative [place]o [place] trace Type Weight in lbs Pre/Post Dialysis Refused Weight 338.486350908680 BP Diastolic BP Location Tested BP Systolic [...] Weight in lbs Pre/Post Dialysis Refused Weight 342.654282238385 BP Diastolic BP Location Tested BP Systolic [...]
--- OUTSIDE RECORDS SUMMARY | 2025-02-18 07:49 | XMS_ITS | Continuity of Care Document ---
Author Organization [facility] [place] Gray, [facility] ([facility]) Address [address] [place] [address] Assessment No assessment recorded. Plan of Treatment [...] trime ster No observ ation record ed. [facility] [address] [place], [address], 10/18/2024 17:42:43 Result Notes None recorded. Problems Name Problem SNOMED Code Status Onset Date Resolution Date Notes Provider Name and Address Organization Details Recorded Time Normal in multigravid a 9947803886885 06 Active 2023 ROBERT lin [place] [facility] 17:15:23 Normal in multigravid a 0407617372343 06 Active 2023 ROBERT REJI [facility], L.L.CClaudia 5 17:15:23 Urine protein test = + 514899188 Active 2024 PEDRO ALFRED [facility], L.L.CClaudia 5 11:33:52 Problem Notes None recorded. Procedures Surgical History Date Name Laterality Status Provider Name and Address Organization Details Recorded Time 024 sampling of cervix for Papanicolaou smear completed PEDRO DONTAE [facility], [facility] 01/24/2025 12:04:27 excision of septum of uterus completed [facility], [facility] 07/01/2024 14:08:52 tonsillectomy and adenoidectomy completed [facility], LClaudiaL.C. 01/07/2025 17:14:21 appendectomy completed [facility], L.L.CClaudia 01/07/2025 17:14:33 wrist repair completed [facility], L[facility] 01/07/2025 17:15:06 Imaging Results None recorded. Procedure Notes None recorded. Medical Equipment None Reported. Allergies Allergen ID Allergen Name Allergen Category Reaction Reaction Severity Criticality Documentation Date Start Date Code Code System Note Provider Name and Address Organization Details Recorded Time 99618 latex environme nt,medica tion rash Not available Not available 07/01/2024 80310 91 RxNorm ROBERT MENDOZA [facility] 4 14:04:49 46591 adhesive environme nt,medica tion rash Not available Not available 07/01/2024 14158 UNK ROBERT MENDOZA [facility], L[facility] 4 14:04:59 Medications Name Sig Start [...] Updated DateTime 5 173.99 cm 50.6 kg/m2 921987. 22 g 98 % 98 % 81 /min 18 /min 98.6 [degF] 122 mm[Hg] 74 mm[Hg] PEDRO ALFRED [facility], L.L[facility]C. 5 11:48:39 Social History Question Answer Notes LastModified by Organizat ion Details LastModified Time Tobacco Smoking Status Never Smoker ROBERT lin [facility], L[facility]C. 07/01/2024 14:07:58 What Is Your Level [...] available 07/01/2024 What Is Your Relationship Status? [email or web address] Information not available 07/01/2024 Do You Use [...] virus, quadrivalent, PF 09/12/2023 completed PEDRO lin [facility], L.L.CClaudia 08/13/2024 10:04:56 Past Encounters Encounter ID Performer Location Encounter Start Date Encounter Closed Date Diagnosis/Indication Diagnosis SNOMED-CT Code Diagnosis ICD10 Code Diagnosis Note [id number] River Dykes MD [facility] ([facility]) [address] [place] [address] 01/24/2025 11:23:28 01/24/2025 14:45:41 Normal in multigravida 5224936810 10275 Z34.81 Gestation period, 35 weeks 38124622 Z3A.35 [id number] River Dykes MD [facility] ([facility]) [address] [place] [address] 01/31/2025 10:40:12 01/31/2025 11:20:28 Normal in multigravida 6915521055 69970 Z34.83 Gestation period, 36 weeks 36970724 Z3A.36 [id number] River Dykes MD [facility] ([facility]) [address] [place] [address] 02/11/2025 11:46:18 02/11/2025 13:54:29 Normal in multigravida 3092500488 24475 Z34.83 Gestation period, 38 weeks 96974476 Z3A.38 Urine prot ein test = + 882273954 R80.9 [id number] River Dykes MD [facility] ([facility]) [address] [place] [address] 02/14/2025 11:29:18 02/14/2025 12:11:03 Normal in multigravida 8567905622 12272 Z34.83 Gestation period, 38 weeks 80809717 Z3A.38 Health Concerns Section Related Observation LastModified by Organization Detai ls LastModified Time None Recorded Concern Status LastModified by Organization Details LastModified Time None Recorded Payers Encounter Date Sequence Insurance Name Policy Number Policy Hebert Covered Member ID Hebert Member ID Guarantor Name 02/14/2025 1 [facility] [id number] Mayo Garcias [id number] Mayo Garcias Notes Date Note Type Note Provider Name and Address Organization Details Recorded Time 02/14/2025 text/html jr ob routineRep orted bypatient.Associated Symptoms:normal movement; no bleeding; no vaginal/vulvar itching or irritation; no dysuria; no frequency; no urgency; no hematuria; no fever; no nausea; no emesis; no diarrhea/loose stool; no visual changes; no headache; no dizziness; no breathlessness;abdomi nal pain;cramping;contrac tions([place]);vaginal discharge;constipatio n;edema(feet/hands/li ps)Notes:heartburn,lo w back pain, vaginal pressureDenies any alcohol, tobacco, or drug use Pt states this weekend her Bp has been running 116/68-120/72 River Dykes MD [address] [place] [address], [address], [facility], LDorian 02/14/2025 12:07:18 OBGyn Episode Ob Episode Information Episode Created Date Number of Fetuses Patient Bloodtype Patient rh Status Prepregnancy Weight lbs Domestic Partner Domestic Partner Phone Father Name It Disaster Recovery Manager Status 07/01/20 24 1 A Positive OPEN Fetus Data First Name Last Name Admitted to NICU Weight (g) Sex Living Outcome Pediatric Complications Fetus ID Race Codes Race Delivery Type [id number] Problems Problem Notes Problem Name Start Date End Date Resolution Snomed Code Not e Normal in multigravida 08/12/2024 189571588235223 Murali Calculation Initial Murali Date Initial Exam [...] Weight in lbs Pre/Post Dialysis Refused Weight 312.23435449987 BP Diastolic BP Location Tested BP Systolic [...] Type Weight in lbs Pre/Post Dialysis Refused 309.693351227000 BP Diastolic BP Location Tested BP Systolic [...] Type Weight in lbs Pre/Post Dialysis Refused 309.384393146249 BP Diastolic BP Location Tested BP Systolic [...] Type Weight in lbs Pre/Post Dialysis Refused 316.545545076565 BP Diastolic BP Location Tested BP Systolic [...] Weight in lbs Pre/Post Dialysis Refused Weight 319.310285209143 BP Diastolic BP Location Tested BP Systolic [...] Weight in lbs Pre/Post Dialysis Refused Weight 326.548568417015 BP Diastolic BP Location Tested BP Systolic [...] Weight in lbs Pre/Post Dialysis Refused Weight 329.738920954331 BP Diastolic BP Location Tested BP Systolic [...] Weight in lbs Pre/Post Dialysis Refused Weight 327.21662309018 BP Diastolic BP Location Tested BP Systolic [...] Weight in lbs Pre/Post Dialysis Refused Weight 335.320479223510 BP Diastolic BP Location Tested BP Systolic [...] Weight in lbs Pre/Post Dialysis Refused Weight 337.681965121337 BP Diastolic BP Location Tested BP Systolic [...] Cervic Station 38 cm none trace Negative [place] neg 40% -4 Type Weight in lbs Pre/Post Dialysis Refused 336.07529859599 BP Diastolic BP Location Tested BP Systolic [...] Effacement Cervic Station 40 cm none 2+ [place] 1+ Type Weight in lbs Pre/Post Dialysis Refused Weight 339.317281752754 BP Diastolic BP Location Tested BP Systolic [...] Cervic Station 41 cm none 1+ Negative [place] trace Type Weight in lbs Pre/Post Dialysis Refused Weight 338.865649962677 BP Diastolic BP Location Tested BP Systolic [...] Weight in lbs Pre/Post Dialysis Refused Weight 342.761835152800 BP Diastolic BP Location Tested BP Systolic [...]
--- OUTSIDE RECORDS SUMMARY | 2025-02-18 07:49 | XMS_ITS | Continuity of Care Document ---
Author Organization [facility], LDorian, [facility] ([facility]) Address [address] [place] [address] Assessment No assessment recorded. Plan of Treatment Reminders Order Date Submit Date Provider Last Modified By Organization Details Last Modified Time Details Appointments RETURN OB 2024 08:40A M River Dykes MD Not available Not available Not available Lab streptoco ccus group B, culture, unspecifi ed specimen 2024 025 [employer] [facility], [address], [address], 01/28/2025 10:44:29 Referral None recorded. Procedures None [...] trime ster No observ ation record ed. [email or web address] [place], [address], 10/18/2024 17:42:43 Result Notes None recorded. Problems Name Problem SNOMED Code Status Onset Date Resolution Date Notes Provider Name and Address Organization Details Recorded Time Normal in multigravid a 0260058416351 06 Active 2023 ROBERT MENDOZA [facility], L.L.CClaudia 5 17:15:23 Normal in multigravid a 5723397134859 06 Active 2023 ROBERT REJI [facility], L.L.CClaudia 5 17:15:23 Urine protein test = + 290435647 Active 2024 PEDRO ALFRED [facility], L.L.CClaudia 5 11:33:52 Problem Notes None recorded. Procedures Surgical History Date Name Laterality Status Provider Name and Address Organization Details Recorded Time 024 sampling of cervix for Papanicolaou smear completed [facility] DONTAE [facility], L[facility]C. 01/24/2025 12:04:27 excision of septum of uterus completed [facility], [facility] 07/01/2024 14:08:52 tonsillectomy and adenoidectomy completed [facility], [facility] 01/07/2025 17:14:21 appendectomy completed [facility], [facility] 01/07/2025 17:14:33 wrist repair completed [facility], [facility] 01/07/2025 17:15:06 Imaging Results None recorded. Procedure Notes None recorded. Medical Equipment None Reported. Allergies Allergen ID Allergen Name Allergen Category Reaction Reaction Severity Criticality Documentation Date Start Date Code Code System Note Provider Name and Address Organization Details Recorded Time 77956 latex environme nt,medica tion rash Not available Not available 07/01/2024 28249 91 RxNorm ROBERTMELODY MENDOZA [facility], [facility]. 14:04:49 03943 adhesive environme nt,medica tion rash Not available Not available 07/01/2024 48027 UNTonya lin [facility], L.LClaudiaCClaudia 4 14:04:59 Medications Name Sig Start Date [...] Updated DateTime 5 173.99 cm 50.5 kg/m2 379501. 03 g 98 % 98 % 97 /min 18 /min 98 [degF] 118 mm[Hg] 74 mm[Hg] PEDRO ALFRED [facility], L.L.CClaudia 5 12:11:59 Social History Question Answer Notes LastModified by Organizat ion Details LastModified Time Tobacco Smoking Status Never Smoker ROBERT lin [facility], L.LClaudiaCClaudia 07/01/2024 14:07:58 What Is Your Level Of [...] split virus, quadrivalent, PF 09/12/2023 completed PEDRO lni [facility], L.L.CClaudia 08/13/2024 10:04:56 Past Encounters Encounter ID Performer Location Encounter Start Date Encounter Closed Date Diagnosis/Indication Diagnosis SNOMED-CT Code Diagnosis ICD10 Code Diagnosis Note [id number] River Dykes MD [facility] ([facility]) [address] [place] [address] 12/27/2024 11:12:17 12/27/2024 13:03:05 Normal in multigravida 7202240392 02145 Z34.81 Gestation period, 31 weeks 56948085 Z3A.31 [id number] ROBBIE ESPERANZA [facility] ([facility]) [address] [place] [address] 12/28/2024 12:33:08 12/29/2024 15:48:02 [id number] River Dykes MD [facility] ([facility]) [address] [place] [address] 01/10/2025 11:25:06 01/10/2025 13:19:46 Normal in multigravida 4433444802 69691 Z34.81 Gestation period, 33 weeks 04646826 Z3A.33 [id number] River Dykes MD [facility] ([facility]) [address] [place] [address] 01/24/2025 11:23:28 01/24/2025 14:45:41 Normal in multigravida 9736516758 21068 Z34.81 Gestation period, 35 weeks 24599808 Z3A.35 Health Concerns Section Related Observation LastModified by Organization Detai ls LastModified Time None Recorded Concern Status LastModified by Organization Details LastModified Time None Recorded Payers Encounter Date Sequence Insurance Name Policy Number Policy Hebert Covered Member ID Hebert Member ID Guarantor Name 01/24/2025 1 [facility] [id number] Mayo Garcias [id number] Mayo Garcias Notes Date Note Type Note [...] tobacco, or drug use River Dykes MD [address] [place] [address], [address], [facility] [place] 01/24/2025 12:23:42 OBGyn Episode Ob Episode Information Episode Created Date Number of Fetuses Patient Bloodtype Patient rh Status Prepregnancy Weight lbs Domestic Partner Domestic Partner Phone Father Name Hospitality Team Member Status 07/01/20 24 1 A Positive OPEN Fetus Data First Name Last Name Admitted to NICU Weight (g) Sex Living Outcome Pediatric Complications Fetus ID Race Codes Race Delivery Type 5422 Problems Problem Notes Problem Name Start Date End Date Resolution Snomed Code Not e Normal in multigravida 08/12/2024 038191943465378 Murali Calculation Initial Murali Date Initial Exam [...] Weight in lbs Pre/Post Dialysis Refused Weight 312.92401345388 BP Diastolic BP Location Tested BP Systolic [...] Type Weight in lbs Pre/Post Dialysis Refused 309.263488541389 BP Diastolic BP Location Tested BP Systolic [...] Type Weight in lbs Pre/Post Dialysis Refused 309.662641319150 BP Diastolic BP Location Tested BP Systolic [...] Type Weight in lbs Pre/Post Dialysis Refused 316.649197654607 BP Diastolic BP Location Tested BP Systolic [...] Weight in lbs Pre/Post Dialysis Refused Weight 319.768836280183 BP Diastolic BP Location Tested BP Systolic [...] Weight in lbs Pre/Post Dialysis Refused Weight 326.766425407396 BP Diastolic BP Location Tested BP Systolic [...] Weight in lbs Pre/Post Dialysis Refused Weight 329.791943416831 BP Diastolic BP Location Tested BP Systolic [...] Weight in lbs Pre/Post Dialysis Refused Weight 327.00012512216 BP Diastolic BP Location Tested BP Systolic [...] Weight in lbs Pre/Post Dialysis Refused Weight 335.539263847980 BP Diastolic BP Location Tested BP Systolic [...] Weight in lbs Pre/Post Dialysis Refused Weight 337.758058527532 BP Diastolic BP Location Tested BP Systolic [...] Cervic Station 38 cm none trace Negative [place] neg 40% -4 Type Weight in lbs Pre/Post Dialysis Refused 336.58335978399 BP Diastolic BP Location Tested BP Systolic [...] Effacement Cervic Station 40 cm none 2+ [place] 1+ Type Weight in lbs Pre/Post Dialysis Refused Weight 339.647264793523 BP Diastolic BP Location Tested BP Systolic [...] Weight in lbs Pre/Post Dialysis Refused Weight 338.194696378239 BP Diastolic BP Location Tested BP Systolic [...] Weight in lbs Pre/Post Dialysis Refused Weight 342.003544933684 BP Diastolic BP Location Tested BP Systolic [...]
--- OUTSIDE RECORDS SUMMARY | 2025-02-18 07:49 | XMS_ITS | Continuity of Care Document ---
Author Organization [facility], [place], [facility] ([facility]) Address [address] [place] [address] Assessment Encounter Date Assessment Date Assessment LastModified [...] trime ster No observ ation record ed. [facility] [address] [place], [address], 10/18/2024 17:42:43 Result Notes None recorded. Problems Name Problem SNOMED Code Status Onset Date Resolution Date Notes Provider Name and Address Organization Details Recorded Time Normal in multigravid a 8509420156971 06 Active 2023 ROBERT lin [place] [facility] 17:15:23 Normal in multigravid a 2217309273566 06 Active 2023 ROBERT MENDOZA [facility], Delphine 5 17:15:23 Urine protein test = + 617686837 Active 2024 PEDRO ALFRED [facility], Delphine 5 11:33:52 Problem Notes None recorded. Procedures Surgical History Date Name Laterality Status Provider Name and Address Organization Details Recorded Time 024 sampling of cervix for Papanicolaou smear completed PEDRO DIGGS [facility], Delphine 01/24/2025 12:04:27 excision of septum of uterus completed [facility], Delphine 07/01/2024 14:08:52 tonsillectomy and adenoidectomy completed [facility], DylanLClaudiaCClaudia 01/07/2025 17:14:21 appendectomy completed [facility], WillianCClaudia 01/07/2025 17:14:33 wrist repair completed [facility], LClaudiaLClaudiaCClaudia 01/07/2025 17:15:06 Imaging Results None recorded. Procedure Notes None recorded. Medical Equipment None Reported. Allergies Allergen ID Allergen Name Allergen Category Reaction Reaction Severity Criticality Documentation Date Start Date Code Code System Note Provider Name and Address Organization Details Recorded Time 85258 latex environme nt,medica tion rash Not available Not available 07/01/2024 30997 91 RxNorm ROBERT MENDOZA [facility], [place] 4 14:04:49 12113 adhesive environme nt,medica tion rash Not available Not available 07/01/2024 87759 UNK ROBERT MENDOZA [facility], [place] 08/15/202 4 14:04:59 Medications Name Sig Start Date [...] Updated DateTime 5 173.99 cm 51.2 kg/m2 306076. 59 g 20 /min 90 /min 98 % 98 % 98 [degF] 122 mm[Hg] 76 mm[Hg] ROBERT MENDOZA [facility], [facility] 5 14:33:54 Social History Question Answer Notes LastModified by Organizat ion Details LastModified Time Tobacco Smoking Status Never Smoker ROBERT MENDOZA [facility] 07/01/2024 14:07:58 What Is Your Level Of Alcohol Consumption? None Information not available 07/01/2024 Are You Currently Employed? Yes Information not available 07/01/2024 Do You Or Have You Ever Used E-cigarettes Or Vape? 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, L.CClaudia 08/13/2024 10:04:56 Past Encounters Encounter ID Performer Location Encounter Start Date Encounter Closed Date Diagnosis/Indication Diagnosis SNOMED-CT Code Diagnosis ICD10 Code Diagnosis Note [id number] River Dykes MD [facility] ([facility]) [address] [place] [address] 01/24/2025 11:23:28 01/24/2025 14:45:41 Normal in multigravida 4355615835 94972 Z34.81 Gestation period, 35 weeks 36864414 Z3A.35 [id number] River Dykes MD [facility] ([facility]) [address] [place] [address] 01/31/2025 10:40:12 01/31/2025 11:20:28 Normal in multigravida 9379364536 69125 Z34.83 Gestation period, 36 weeks 82830640 Z3A.36 [id number] River Dykes MD [facility] ([facility]) [address] [place] [address] 02/11/2025 11:46:18 02/11/2025 13:54:29 Normal in multigravida 6129916903 47949 Z34.83 Gestation period, 38 weeks 92289426 Z3A.38 Urine prot ein test = + 726681342 R80.9 [id number] River Dykes MD [facility] ([facility]) [address] [place] [address] 02/14/2025 11:29:18 02/14/2025 12:11:03 Normal in multigravida 1402459883 86782 Z34.83 Gestation period, 38 weeks 41072604 Z3A.38 [id number] River Dykes MD [facility]) [address] [place] [address] 02/16/2025 14:12:35 02/16/2025 15:21:32 Normal in multigravida 2431616630 20176 Z34.83 Gestation period, 39 weeks 29608633 Z3A.39 Health Concerns Section Related Observation LastModified by Organization Detai ls LastModified Time None Recorded Concern Status LastModified by Organization Details LastModified Time None Recorded Payers Encounter Date Sequence Insurance Name Policy Number Policy Hebert Covered Member ID Hebert Member ID Guarantor Name 02/16/2025 1 [facility] [id number] Mayo Garcias [id number] Mayo Garcias Notes Date Note Type Note Provider Name and Address Organization Details Recorded Time 02/16/2025 text/html jr ob routineRep orted bypatient.Associated [...] around 0930 this morning. River Dykes MD [address] [place] [address], [address], [facility], DylanClaudia 02/16/2025 15:09:24 OBGyn Episode Ob Episode Information Episode Created Date Number of Fetuses Patient Bloodtype Patient rh Status Prepregnancy Weight lbs Domestic Partner Domestic Partner Phone Father Name Waiter/Waitress Take Out Status 07/01/20 24 1 A Positive OPEN Fetus Data First Name Last Name Admitted to NICU Weight (g) Sex Living Outcome Pediatric Complications Fetus ID Race Codes Race Delivery Type 5422 Problems Problem Notes Problem Name Start Date End Date Resolution Snomed Code Not e Normal in multigravida 08/12/2024 459134135530231 Murali Calculation Initial Umrali Date Initial Exam Date Initial Exam Provider [...] Weight in lbs Pre/Post Dialysis Refused Weight 312.32781982001 BP Diastolic BP Location Tested BP Systolic [...] Type Weight in lbs Pre/Post Dialysis Refused 309.664788948823 BP Diastolic BP Location Tested BP Systolic [...] Type Weight in lbs Pre/Post Dialysis Refused 309.023172547190 BP Diastolic BP Location Tested BP Systolic [...] Type Weight in lbs Pre/Post Dialysis Refused 316.835750036017 BP Diastolic BP Location Tested BP Systolic [...] Weight in lbs Pre/Post Dialysis Refused Weight 319.889197817450 BP Diastolic BP Location Tested BP Systolic [...] Weight in lbs Pre/Post Dialysis Refused Weight 326.542234321073 BP Diastolic BP Location Tested BP Systolic [...] Weight in lbs Pre/Post Dialysis Refused Weight 329.863367751569 BP Diastolic BP Location Tested BP Systolic [...] Weight in lbs Pre/Post Dialysis Refused Weight 327.31245394760 BP Diastolic BP Location Tested BP Systolic [...] Weight in lbs Pre/Post Dialysis Refused Weight 335.552554880518 BP Diastolic BP Location Tested BP Systolic [...] Weight in lbs Pre/Post Dialysis Refused Weight 337.435080514172 BP Diastolic BP Location Tested BP Systolic [...] Cervic Station 38 cm none trace Negative [place] neg 40% -4 Type Weight in lbs Pre/Post Dialysis Refused 336.96565633474 BP Diastolic BP Location Tested BP Systolic [...] Effacement Cervic Station 40 cm none 2+ [place] 1+ Type Weight in lbs Pre/Post Dialysis Refused Weight 339.748057715491 BP Diastolic BP Location Tested BP Systolic [...] Weight in lbs Pre/Post Dialysis Refused Weight 338.797972540895 BP Diastolic BP Location Tested BP Systolic [...] Weight in lbs Pre/Post Dialysis Refused Weight 342.518953052054 BP Diastolic BP Location Tested BP Systolic [...]
--- OUTSIDE RECORDS SUMMARY | 2025-02-18 07:49 | XMS_ITS | Continuity of Care Document ---
Author Organization [facility] Isaac, LDorian, [facility] ([facility]) Address [address] [place] [address] Assessment No assessment recorded. Plan of Treatment Reminders Order Date Submit Date Provider Last Modified By Organization Details Last Modified Time Details Appointments RETURN OB 2024 08:40A M River Dykes MD Not available Not available Not available Lab urinalysi s, complete 2024 025 [facility] ([facility]), [address] [place], [address], 02/14/2025 19:04:11 Referral None recorded. Procedures None recorded. Surgeries [...] trime ster No observ ation record ed. [facility] [address] [place], [address], 10/18/2024 17:42:43 Result Notes None recorded. Problems Name Problem SNOMED Code Status Onset Date Resolution Date Notes Provider Name and Address Organization Details Recorded Time Normal in multigravid a 1293078353061 06 Active 2023 ROBERTMELODY MENDOZA [facility] 5 17:15:23 Normal in multigravid a 8420173809357 06 Active 2023 ROBERT MENDOZA [facility] 5 17:15:23 Urine protein test = + [id number] Active 2024 JOSEFINAJON YARELISFilomena ALFRED [facility] 5 11:33:52 Problem Notes None recorded. Procedures Surgical History Date Name Laterality Status Provider Name and Address Organization Details Recorded Time 024 sampling of cervix for Papanicolaou smear [facility] 01/24/2025 12:04:27 excision of septum of uterus completed [facility] 07/01/2024 14:08:52 tonsillectomy and adenoidectomy completed [facility] 01/07/2025 17:14:21 appendectomy completed [facility] 01/07/2025 17:14:33 wrist repair completed [facility] 01/07/2025 17:15:06 Imaging Results None recorded. Procedure Notes None recorded. Medical Equipment None Reported. Allergies Allergen ID Allergen Name Allergen Category Reaction Reaction Severity Criticality Documentation Date Start Date Code Code System Note Provider Name and Address Organization Details Recorded Time 50073 latex environme nt,medica tion rash Not available Not available 07/01/2024 44248 91 RxNorm ROBERTMELODY MENDOZA [facility] 14:04:49 73067 adhesive environme nt,medica tion rash Not available Not available 07/01/2024 [id number] UNK ROBERT MENDOZA null, [facility]audia 4 14:04:59 Medications Name Sig Start [...] Updated DateTime 5 173.99 cm 50.8 kg/m2 877987. 81 g 20 /min 98.2 [degF] 92 /min 98 % 98 % 162 mm[Hg] 106 mm[Hg] ROBERT REJI [facility]ia 5 12:29:13 Date Recorded Body height Body mass index (BMI) Body weight Oxygen saturation Oxygen saturation in Arterial blood by Pulse oximetry Heart rate Respiratory rate Body temperature Systolic blood pressure Diastolic blood pressure Provider Name and Address Organization Details Last Updated DateTime 5 173.99 cm 50.6 kg/m2 193737. 22 g 98 % 98 % 81 /min 18 /min 98.6 [degF] 122 mm[Hg] 74 mm[Hg] PEDRO ALFRED [facility] 5 11:48:39 Social History Question Answer Notes LastModified by Organizat ion Details LastModified Time Tobacco Smoking Status Never Smoker ROBERT REJI riley [facility] 07/01/2024 14:07:58 What Is Your [...] you able to care for yourself? Yes [facility] Information n ot available 07/01/2024 Mental Status [...] virus, quadrivalent, PF 09/12/2023 completed PEDRO lin [facility] 08/13/2024 10:04:56 Past Encounters Encounter ID Performer Location Encounter Start Date Encounter Closed Date Diagnosis/Indication Diagnosis SNOMED-CT Code Diagnosis ICD10 Code Diagnosis Note [id number] River Dykes MD [facility] ([facility]) [address] [place], [place] [address] 01/24/2025 11:23:28 01/24/2025 14:45:41 Normal in multigravida 4702818252 32305 Z34.81 Gestation period, 35 weeks 87751604 Z3A.35 [id number] River Dykes MD [facility] ([facility]) [address] [place] [phone] 01/31/2025 10:40:12 01/31/2025 11:20:28 Normal in multigravida 2249088538 58350 Z34.83 Gestation period, 36 weeks 48670472 Z3A.36 [id number] River Dykes MD [facility] ([facility]) [address] [place] [address] 02/11/2025 11:46:18 02/11/2025 13:54:29 Normal in multigravida 5304120809 03009 Z34.83 Gestation period, 38 weeks 48523600 Z3A.38 Urine prot ein test = + [id number] R80.9 Health Concerns Section Related Observation LastModified by Organization Detai ls LastModified Time None Recorded Concern Status LastModified by Organization Details LastModified Time None Recorded Payers Encounter Date Sequence Insurance Name Policy Number Policy Hebert Covered Member ID Hebert Member ID Guarantor Name 02/11/2025 1 [facility] [id number] Mayo Garcias [id number] Mayo Garcias Notes Date Note Type Note Provider Name and Address Organization Details Recorded Time 02/11/2025 text/html jr ob routineRep orted bypatient.Associated Symptoms:no abdominal pain; normal movement; no bleeding; no vaginal/vulvar itching or irritation; no dysuria; no frequency; no urgency; no hematuria; no fever; no nausea; no emesis; no constipation; no diarrhea/loose stool; no visual changes; no headache; no breathlessness;crampi ng;contractions(braxt on hill);vaginal discharge;edema(feet/ hands/lips);dizziness Notes:heartburn,low back pain, vaginal pressureDenies any alcohol, tobacco, or drug use River Dykes MD [address] [place] [address], [phone], [facility], Delphine 02/14/2025 06:32:39 02/14/2025 text/html jr ob routineRep orted bypatient.Associated [...] has been running 116/68-120/72 River Dykes MD [address] [place] [address], [phone], [facility], Delphine 02/14/2025 12:07:18 OBGyn Episode Ob Episode Information Episode Created Date Number of Fetuses Patient Bloodtype Patient rh Status Prepregnancy Weight lbs Domestic Partner Domestic Partner Phone Father 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.] Type Weight in lbs Pre/Post Dialysis Refused 309.883159995500 BP Diastolic BP Location Tested BP Systolic [...] Type Weight in lbs Pre/Post Dialysis Refused 316.038610044784 BP Diastolic BP Location Tested BP Systolic [...] Weight in lbs Pre/Post Dialysis Refused Weight 319.779848841400 BP Diastolic BP Location Tested BP Systolic [...] Weight in lbs Pre/Post Dialysis Refused Weight 326.333899512697 BP Diastolic BP Location Tested BP Systolic [...] Weight in lbs Pre/Post Dialysis Refused Weight 329.862882693582 BP Diastolic BP Location Tested BP Systolic [...] Weight in lbs Pre/Post Dialysis Refused Weight 327.71576151178 BP Diastolic BP Location Tested BP Systolic [...] Weight in lbs Pre/Post Dialysis Refused Weight 335.525416396725 BP Diastolic BP Location Tested BP Systolic [...] Weight in lbs Pre/Post Dialysis Refused Weight 337.945734086058 BP Diastolic BP Location Tested BP Systolic [...] Cervic Station 38 cm none trace Negative [place] neg 40% -4 Type Weight in lbs Pre/Post Dialysis Refused 336.94941254615 BP Diastolic BP Location Tested BP Systolic [...] Effacement Cervic Station 40 cm none 2+ [place] 1+ Type Weight in lbs Pre/Post Dialysis Refused Weight 339.602494279736 BP Diastolic BP Location Tested BP Systolic [...] Weight in lbs Pre/Post Dialysis Refused Weight 338.227920978446 BP Diastolic BP Location Tested BP Systolic [...] Weight in lbs Pre/Post Dialysis Refused Weight 342.768252912963 BP Diastolic BP Location Tested BP Systolic [...]
--- NOTE | 2025-02-18 07:52 | PM.OBGYDC ---
Discharge Providers CORRECTIONS IDENTIFICATION TECHNICIAN Date of Admission: 02/17/25 15:10 Date of Discharge: 02/23/25 Attending Provider at Admission: River Dykes MD Attending Provider at Discharge: River Dykes MD Primary Care Provider: DELORIS Vincent Diagnoses at Discharge Discharge Diagnosis (1) 39 weeks gestation of : Status: Resolved (2) Breech presentation: Status: Resolved (3) Spontaneous rupture of membranes: Status: Resolved Reason for Visit Reason for Visit: Poss SROM Hospital Course Hospital Course The patient arrived to the hospital with spontaneous rupture membranes and active labor. I later rupture to forebag and noted that the presenting part was not in vertex position. An ultrasound confirmed breech position. A section was then performed. The was unremarkable. Her course was also unremarkable. Her bleeding was within normal limits. Her pain is well-controlled. Information Peripartum Data: Delivery Method: Physical Exam Narrative: She is in no acute distress Lungs are clear auscultation bilaterally Her heart has a regular rate and rhythm Her fundus is below the umbilicus and firm Her dressing is clean, dry and intact Her extremities have trace edema Urinary Catheter Management: Latex Free: Cath Placed During This Visit: yes Reason for Continuing Indwelling Catheter: Perioperative Use in Selected Surgeries Urinary Catheter Date of Insertion: 02/17/25 Urinary Catheter Time of Insertion: 18:10 History History History 4 Term 0 0 Miscarriages/Ectopic 3 Living Children 0 Discharge Data Studies Completed and Pending Laboratory Results WBC 13.18 10^3/uL (3.29-11.43) H 02/18/25 05:00 Corrected WBC Cancelled 02/17/25 15:09 RBC 3.29 10^6/uL (3.85-5.65) L 02/18/25 05:00 Hgb 8.80 g/dL (11.27-16.99) L 02/18/25 05:00 Hct 27.7 % (36-47) L 02/18/25 05:00 MCV 84.2 fl (85-98) L 02/18/25 05:00 MCH 26.7 pg (27-33) L 02/18/25 05:00 MCHC 31.8 g/dL (30-55) 02/18/25 05:00 RDW 14.5 % (12.1-15.1) 02/18/25 05:00 Plt Count 225 10^3/cmm (157-399) 02/18/25 05:00 MPV 9.9 fL (7.4-10.4) 02/18/25 05:00 Gran % Cancelled 02/17/25 15:09 Neut % (Auto) 79.6 % 02/17/25 16:33 Lymph % (Auto) 13.3 % 02/17/25 16:33 [place] % (Auto) 6.0 % 02/17/25 16:33 Eos % (Auto) 0.5 % 02/17/25 16:33 Baso % (Auto) 0.2 % 02/17/25 16:33 Neut # (Auto) 10.18 10^3/uL (1.8-7.7) H 02/17/25 16:33 Lymph # (Auto) 1.7 10^3/uL (0.8-4.8) 02/17/25 16:33 [place] # (Auto) 0.8 10^3/uL (0.2-0.9) 02/17/25 16:33 Eos # (Auto) 0.1 10^3/uL (0.0-0.8) 02/17/25 16:33 Baso # (Auto) 0.0 10^3/uL (0.0-0.1) 02/17/25 16:33 Absolute Gran (auto) Cancelled 02/17/25 15:09 Nucleated RBC % (auto) 0 % 02/17/25 16:33 Nucleated RBCs # 0.0 /100WBC 02/17/25 16:33 Fluid pH (paper) Positive H 02/17/25 14:45 Blood Type A Positive 02/17/25 16:33 Rho(D) Type Rh positive 02/17/25 16:33 Antibody Screen Negative 02/17/25 16:33 Vitals Last Vital Signs Temp 98.5 F 02/18/25 02:45 Pulse 76 02/18/25 05:03 Resp 16 02/17/25 19:40 BP 98/55 02/18/25 05:03 Pulse Ox 100 02/17/25 19:40 O2 Del Method Room Air 02/17/25 15:35 Results Labs OB ([facility]): Blood Type A Positive 02/17/25 Antibody Screen Negative 02/17/25 Hct 27.7 % (36-47) L 02/18/25 Hgb 8.80 g/dL (11.27-16.99) L 02/18/25 Rho(D) Type Rh positive 02/17/25 Plt Count 225 10^3/cmm (157-399) 02/18/25 Discharge Plan Discharge Patient Disposition: Home Condition: Stable Prescriptions: New ibuprofen 800 mg Tablet 800 mg PO TID Qty: 45 0RF hydrocodone-acetaminophen 5-325 mg Tablet 1 tab PO Q6H PRN (Reason: Moderate To Severe Pain) Qty: 28 0RF Continued prenat.vits,shady,vrr-yyae-ulavj Tablet 1 tab PO DAILY sertraline [Zoloft] 50 mg tablet 50 mg PO DAILY Qty: 90 1RF buspirone 7.5 mg tablet 7.5 mg PO BID 90 Days Qty: 180 1RF aspirin 81 mg Capsule 81 mg PO DAILY Discharge Orders: Discharge Order (Routine); Ordered 02/18/25 Ordered By: River Dykes Referrals: River Dykes MD [Physician] - 02/22/25 8:40 am (6 WEEK APPOINTMENT SCHEDULED February @ 10:20 AM ) Discharge Diet: Usual diet Discharge Activity: Limit activity as instructed Patient Instructions: Depression (DC), Opioid Safety (DC), Preeclampsia and Eclampsia After Delivery (GEN), Hemorrhage (DC), OB - Donis/Frankie, OB Discharge Report, OB Food/Drug Interaction Guide, OB Care at Home, Opioid Safety, Abnormal Bleeding Discharge Attestations CORRECTIONS IDENTIFICATION TECHNICIAN Time Spent in Discharge Care*: less than 30 min Coding Level of Care Code Acute Code for Chg Fwd Diagnoses 39 weeks gestation of Z3A.39 Breech presentation O32.1XX0 Spontaneous rupture of membranes
[2025-02-18] MEDS: docusate sodium 100 mg Capsule PO ×2 (10:13→18:08)
[2025-02-18] MEDS: PRENATAL VIT NO.130/IRON/FOLIC 1 EACH TABLET PO (10:14)
[2025-02-18 12:29] VITALS: BP 111/55; PULSE 81; RESP 16; TEMP 36.7; O2SAT 97
[2025-02-18 16:00] VITALS: BP 116/78; PULSE 83; RESP 16; TEMP 36.7; O2SAT 99
[2025-02-18] MEDS: ibuprofen 800 mg tablet PO (18:08)
[2025-02-18] MEDS: ferrous sulfate EC 325 mg Tablet PO (18:08)
[2025-02-18 19:37] VITALS: BP 128/88; PULSE 103; RESP 16; RESP 17; TEMP 36.8; O2SAT 97; O2SAT 99
== END 2025-02-18 19:40 | disposition home or self-care (01) | DRG 788 ==
LOC: OPOB 02-18 07:45 → OBGYN 02-18 07:46
PROVIDERS: Admitting Provider Family Medicine; PCP Nurse Practitioner Family; Visit Provider Family Medicine
PROC: 10D00Z1 Extraction of Products of Conception, Low, Open Approach (ICD-10-PCS; CPT 59514; principal; 2025-02-17 17:55)
DX: O32.1XX0 Maternal care for breech presentation, not applicable or unspecified (principal); Z3A.39 39 weeks gestation of pregnancy; O69.81X0 Labor and delivery complicated by cord around neck, without compression, not applicable or unspecified; O99.344 Other mental disorders complicating childbirth; Z37.0 Single live birth; F41.9 Anxiety disorder, unspecified; F32.A Depression, unspecified
CPT/HCPCS: 36415; 51702; 59025; 59409; 83986; 85025; 85027; 86850; 86900; 96374; 96376; 99211; J0690; J1885; J2274; J2405; J2765; J3010; J7121; J9999